=== PATIENT | female | born 1990 | race Caucasian/White ===

== ENCOUNTER → 2017-07-31 | Outpatient (CLI) | payer BC ==
[2017-07-31 17:59] LABS: BASOPHILS # (AUTO) 0.1 10^3/uL (0.0-0.1); BASOPHILS % (AUTO) 1 % (0-10); EOSINOPHILS # (AUTO) 0.1 10^3/uL (0.0-0.3); EOSINOPHILS % (AUTO) 1 % (0-10); HEMATOCRIT 41 % (35-52); HEMOGLOBIN 13.6 G/DL (11.5-16.0); LYMPHOCYTES # (AUTO) 2.1 X 10^3 (1.0-4.0); LYMPHOCYTES % (AUTO) 21 % (12-44); MEAN CORPUSCULAR HEMOGLOBIN 27 PG (25-34); MEAN CORPUSCULAR HGB CONC 33 G/DL (32-36); MEAN CORPUSCULAR VOLUME 82 FL (80-99); MEAN PLATELET VOLUME 9.5 FL (7.4-10.4); MONOCYTES # (AUTO) 0.6 X 10^3 (0.0-1.0); MONOCYTES % (AUTO) 6 % (0-12); NEUTROPHILS % (AUTO) 72 % (42-75); PLATELET COUNT 298 10^3/uL (130-400); RED BLOOD COUNT 4.97 10^6/uL (4.35-5.85); RED CELL DISTRIBUTION WIDTH 13.5 % (10.0-14.5); WHITE BLOOD COUNT 9.8 10^3/uL (4.3-11.0)
[2017-07-31 18:14] LABS: BUN/CREATININE RATIO 17; CALCIUM 9.8 MG/DL (8.5-10.1); CARBON DIOXIDE 23 MMOL/L (21-32); CHLORIDE 106 MMOL/L (98-107); CREATININE SERUM 0.69 MG/DL (0.60-1.30); GFR ESTIMATED > 60; GLUCOSE 89 MG/DL (70-105); POTASSIUM 3.9 MMOL/L (3.6-5.0); SODIUM 140 MMOL/L (135-145)
== END ==
LOC: LAB 17:29
PROVIDERS: ATTEND Nurse Practitioner Family
DX: J18.9 Pneumonia, unspecified organism (principal); R05 Cough; R06.00 Dyspnea, unspecified
CPT/HCPCS: 36415; 80048; 82330; 85025; 86141; 86738

== ENCOUNTER 2018-08-15 21:30 | Observation (INO) | payer BC, MEDICAID ==
[~2018-08-15] VITALS: Ht 175.3 cm; Wt 157.9 kg
--- NOTE | 2018-08-15 21:35 | NUR ---
GREER KNIGHT presented to unit via ambulation from ED, accompanied by , with c/o CONTRACTIONS. GREER KNIGHT weighed, gowned, voided, and to bed. EFHM and TOCO applied, VS taken. GREER KNIGHT oriented to bed controls, call light, TV, heat, and A/C controls.
[2018-08-15 22:00] VITALS: BP 134/83
[2018-08-15 23:02] LABS: BASOPHILS % (AUTO) 0 % (0-10); EOSINOPHILS # (AUTO) 0.1 10^3/uL (0.0-0.3); EOSINOPHILS % (AUTO) 1 % (0-10); HEMATOCRIT 36 % (35-52); HEMOGLOBIN 12.1 G/DL (11.5-16.0); LYMPHOCYTES # (AUTO) 1.9 X 10^3 (1.0-4.0); LYMPHOCYTES % (AUTO) 17 % (12-44); MEAN CORPUSCULAR HEMOGLOBIN 28 PG (25-34); MEAN CORPUSCULAR HGB CONC 33 G/DL (32-36); MEAN CORPUSCULAR VOLUME 85 FL (80-99); MEAN PLATELET VOLUME 10.1 FL (7.4-10.4); MONOCYTES # (AUTO) 0.7 X 10^3 (0.0-1.0); MONOCYTES % (AUTO) 6 % (0-12); NEUTROPHILS # (AUTO) 8.7 X 10^3 (1.8-7.8); NEUTROPHILS % (AUTO) 76 % (42-75); PLATELET COUNT 183 10^3/uL (130-400); RED CELL DISTRIBUTION WIDTH 14.3 % (10.0-14.5); WHITE BLOOD COUNT 11.3 10^3/uL (4.3-11.0)
[2018-08-15 23:15] LABS: BILIRUBIN,URINE NEGATIVE (NEGATIVE); CLARITY,URINE VERY CLOUDY; COLOR,URINE YELLOW; GLUCOSE, URINE (UA) NEGATIVE (NEGATIVE); KETONES,URINE 1+ (NEGATIVE); LEUKOCYTE ESTERASE ,URINE 1+ (NEGATIVE); NITRITE,URINE NEGATIVE (NEGATIVE); PH,URINE 6 (5-9); PROTEIN,URINE 2+ (NEGATIVE); UROBILINOGEN,URINE 1 MG/DL (NORMAL)
[2018-08-15 23:21] LABS: BACTERIA,URINE TRACE /HPF; RBC,URINE >100 /HPF; WBC,URINE 0-2 /HPF
[2018-08-15] MEDS ORDERED: BUTORPHANOL INJ 2 MG/ML (STADOL) VIAL ONE (23:45)
[2018-08-15] MEDS ORDERED: D5 LR IV SOLUTION 1,000 ML IV ONE (23:45)
[2018-08-15] MEDS ORDERED: BUTORPHANOL INJ 2 MG/ML (STADOL) VIAL IV ONE (23:45)
[2018-08-15] MEDS ORDERED: ONDANSETRON 4 MG/2 ML (SDV) Z0FRAN IVP ONE (23:45)
[2018-08-16] MEDS: D5 LR IV SOLUTION 1,000 ML IV SCH ×6 (00:15→20:15)
[2018-08-16] MEDS ORDERED: D5 LR IV SOLUTION 1,000 ML IV ONE (01:18)
[2018-08-16] MEDS ORDERED: ONDANSETRON 4 MG/2 ML (SDV) Z0FRAN ONE (02:09)
[2018-08-16] MEDS ORDERED: BUTORPHANOL INJ 2 MG/ML (STADOL) VIAL ONE ×2 (03:11→07:50)
[2018-08-16] MEDS: BUTORPHANOL INJ 2 MG/ML (STADOL) VIAL IV PRN ×8 (03:17→21:22)
--- NOTE | 2018-08-16 07:06 | NUR ---
Dr. Avina updated on patients status. New orders received.
[2018-08-16] MEDS ORDERED: cefTRIAXone 1,000 MG IV (ROCEPHIN) VIAL ONE (07:25)
[2018-08-16] MEDS ORDERED: WATER (STERILE) FOR INJECTION 0 ML ONE (07:28)
--- NOTE | 2018-08-16 07:30 | NUR ---
Dr. Horne here to see patient. Updated on Dr. Avina's status of assuming care for patient.
[2018-08-16] MEDS: cefTRIAXone FOR IV USE 1,000 MG in WATER (STERILE) FOR INJECTION 10 ML IV SCH (07:38)
--- NOTE | 2018-08-16 07:45 | History & Physical ---
History and Physical Date Seen by Provider: Aug 16, 2018 Time Seen by Provider: 07:41 This patient is a 28-year-old white female patient of Dr. Avina who was admitted last evening with symptoms and signs of a kidney stone. She has been maintained on IV fluids and intermittent pain medication through the night. Her pain has persisted does not appear that she has passed a stone as of yet. She does have a history of having a kidney stone about 6 years ago. She denies rupture membranes or bleeding. She does feel baby moving and denies contractions. She's had no other to date with this . Allergies are none Medications are vitamins Medical social and surgical histories are per her antepartum record per Dr. Avina HEENT exam is normal, patient does appear to be uncomfortable Neck is supple without lymphadenopathy or thyromegaly Abdomen is gravid soft nontender nondistended Extremities show no clubbing or cyanosis. There is some pretibial pitting edema that is normal. Pelvic Exam is deferred Lab work is as follows Laboratory Tests Test 08/15/18 22:55 08/15/18 23:07 Range/Units White Blood Count 11.3 H 4.3-11.0 10^3/uL Red Blood Count 4.27 L 4.35-5.85 10^6/uL Hemoglobin 12.1 11.5-16.0 G/DL Hematocrit 36 35-52 % Mean Corpuscular Volume 85 80-99 FL Mean Corpuscular Hemoglobin 28 25-34 PG Mean Corpuscular Hemoglobin Concent 33 32-36 G/DL Red Cell Distribution Width 14.3 10.0-14.5 % Platelet Count 183 130-400 10^3/uL Mean Platelet Volume 10.1 7.4-10.4 FL Neutrophils (%) (Auto) 76 H 42-75 % Lymphocytes (%) (Auto) 17 12-44 % Monocytes (%) (Auto) 6 0-12 % Eosinophils (%) (Auto) 1 0-10 % Basophils (%) (Auto) 0 0-10 % Neutrophils # (Auto) 8.7 H 1.8-7.8 X 10^3 Lymphocytes # (Auto) 1.9 1.0-4.0 X 10^3 Monocytes # (Auto) 0.7 0.0-1.0 X 10^3 Eosinophils # (Auto) 0.1 0.0-0.3 10^3/uL Basophils # (Auto) 0.0 0.0-0.1 10^3/uL Urine Color YELLOW Urine Clarity VERY CLOUDY H Urine pH 6 5-9 Urine Specific Catherine 1.020 1.016-1.022 Urine Protein 2+ H NEGATIVE Urine Glucose (UA) NEGATIVE NEGATIVE Urine Ketones 1+ H NEGATIVE Urine Nitrite NEGATIVE NEGATIVE Urine Bilirubin NEGATIVE NEGATIVE Urine Urobilinogen 1 NORMAL MG/DL Urine Leukocyte Esterase 1+ H NEGATIVE Urine RBC (Auto) 5+ H NEGATIVE Urine RBC >100 H /HPF Urine WBC 0-2 /HPF Urine Squamous Epithelial Cells 5-10 /HPF Urine Crystals NONE /LPF Urine Bacteria TRACE /HPF Urine Casts NONE /LPF Urine Mucus SMALL H /LPF Urine Culture Indicated NO This does appear consistent with nephrolithiasis monitor shows a normal heart rate pattern with a reactive pattern and some uterine irritability but no distinct contractions Vital Signs Date Time Temp Pulse Resp B/P (MAP) Pulse Ox O2 Delivery O2 Flow Rate FiO2 08/15/18 22:00 98.7 100 18 134/83 (100) Vital signs are stable. Patient is afebrile. Assessment and plan 35-6/7 weeks' gestation in a patient with nephrolithiasis and ureteral colic. Dr. Avina is aware of this patient and has assumed care. Ureteral lithiasis and ureteral colic Allergies and Home Medications Allergies Coded Allergies: No Known Drug Allergies (Unverified , 08/15/18) Patient Home Medication List Home Medication List Reviewed: LING Arita MD Aug 16, 2018 07:45
[2018-08-16 08:00] VITALS: BP 122/73
--- NOTE | 2018-08-16 08:11 | NUR ---
Ultrasound here for ordered scans.
--- NOTE | 2018-08-16 08:45 | NUR ---
Dr. Avina here to see patient. New orders received.
[2018-08-16] MEDS ORDERED: morphine INJ 10 MG/ML 1ML (SYR OR VIAL) IVP PRN (09:00)
--- NOTE | 2018-08-16 09:17 | History & Physical ---
History of Present Illness History of Present Illness Reason for visit/HPI This is a 28 yo female patient who presents with back pain since yesterday. Pain is similar to what she felt when diagnosed with kidney stones during a previous . She has also had associated nausea and vomitting, most recently this morning. Pain is increased with lloyds punch and seems to be relieved with pain medication (stadol). She is 35 and 6/7 weeks . She is not currently having contractions. She denies bleeding or rupture of membranes. She reports movement. Date of Admission 08/16/18 Date Seen by a Provider: Aug 16, 2018 Time Seen by a Provider: 08:45 I consulted on this patient on 08/16/18 09:12 Attending Physician Kishan Hazel DO Admitting Physician Pham,Local Physician Consult Attending note - at [address] Horne yesterday for suspected nephrolithiasis. Previous history of suspected nephrolithiasis in previousd . She has had a vaginal delivery and then emergency CS and would like TOLAC. Current pain is 6/10. Had hematuria on straigh cath. no fever and no leukocytosis Allergies and Home Medications Allergies Coded Allergies: No Known Drug Allergies (Unverified , 08/15/18) Patient Home Medication List Home Medication List Reviewed: Yes Past Axkusdd-Ltrjir-Wfxlqu Hx Past Med/Social Hx: Reviewed Nursing Past Med/Soc Hx Patient Social History Marrital Status: Recent Foreign Travel: No Contact w/other who traveled: No Recent Infectious Disease Expo: No Past Medical History Surgeries: Section Expected Date of Delivery: September 13, 2018 Hx : 3 Hx Para: 2 Family History Other Conditions/Hx (breast cancer, aunt and GM) Review of Systems Constitutional: no symptoms reported Gastrointestinal: nausea, vomiting Genitourinary: no symptoms reported, hematuria : Yes Expected Date of Delivery: September 13, 2018 LMP: Aug 17, 2018 Musculoskeletal: back pain (mostly on left) All Other Systems Reviewed Negative Unless Noted: Yes Physical Exam Vital Signs Vital Signs - First Documented 08/15/18 08/16/18 22:00 08:00 Temp 98.7 Pulse 100 Resp 18 B/P (MAP) 134/83 (100) Pulse Ox 95 O2 Delivery Room Air Capillary Refill : Height, Weight, BMI Height: 5'9.00" Weight: 348lbs. 2.0oz. [id number]; 51.4 BMI Method: General Appearance: No Apparent Distress Neck: Full Range of Motion, Normal Inspection Respiratory: No Accessory Muscle Use Cardiovascular: Regular Rate, Rhythm Gastrointestinal: Other (gravid abdomen) Back: CVA Tenderness (L), CVA Tenderness (R) Neurologic/Psychiatric: Alert, Oriented x3, Normal Mood/Affect Skin: Normal Color, Warm/Dry Assessment/Plan Assessment and Plan at 35 + 6/7 weeks * No signs of labor currently: no contractions, no distress * Ultrasound positive for heart tones and normal movement * Continue to monitor Back pain * suspect nephrolithiasis * UA positive for RBC and leukocyte esterase * No stone or hydronephrosis visualized on ultrasound * Rocephin * IVF * pain management with stadol, morphine ordered for breakthrough pain Nausea / Vomiting * Fluid replacement with IVF * promethazine for nausea Attending addendum - Agree with above. US for position and growth, BMP pending, Rocephin due to suspected nephrolithiasis. Strain urine, accurate i/o, hyperhydration and IV pain meds and antiemetics. Betamethasone as with possibility of delivery. No evidence of hydronephrosis on renal scan but she is requiring pain medication and antiemetics. Will continue treatment for suspected stone and convert to oral narcotics as she is able. In addition, patient desires TOLAC and form has been signed and is on clinic chart. Admission Diagnosis Admission Status: Observation ADITHYA PEREZ MED STUDENT Aug 16, 2018 09:17 KISHAN HAZEL DO Aug 17, 2018 05:30
[2018-08-16 09:31] LABS: BUN/CREATININE RATIO 13; CALCIUM 9.7 MG/DL (8.5-10.1); CARBON DIOXIDE 18 MMOL/L (21-32); CHLORIDE 106 MMOL/L (98-107); CREATININE SERUM 0.62 MG/DL (0.60-1.30); GFR ESTIMATED > 60; GLUCOSE 83 MG/DL (70-105); POTASSIUM 3.7 MMOL/L (3.6-5.0); SODIUM 137 MMOL/L (135-145)
--- NOTE | 2018-08-16 10:00 | NUR ---
Patient transferred to room 301 via ambulation. Patient oriented to room and call light.
[2018-08-16] MEDS: PROMETHAZINE INJ 25 MG/ML (PHENERGAN) AMP IVP PRN (10:15)
--- NOTE | 2018-08-16 10:28 | Diagnostic Imaging Report ---
PROCEDURE: US Renal Bilateral. TECHNIQUE: Multiple Real-time grayscale images were obtained over the kidneys in various projections bilaterally. INDICATION: Nephrolithiasis. FINDINGS: The right kidney measures 11.9 x 6.1 x 5.9 cm. The left kidney measures 14.4 x 7.7 x 7.5 cm. Both kidneys demonstrate normal renal cortical thickness and echogenicity. There is no hydronephrosis, calculus, or mass. The patient voided prior to the exam and therefore no images of the bladder were obtained. The IVC was also not seen. IMPRESSION: Unremarkable sonographic appearance of both kidneys. Dictated by: Dictated on workstation # [id number]
--- NOTE | 2018-08-16 10:38 | Diagnostic Imaging Report ---
INDICATION: Flank pain. TECHNIQUE: Multiple Real-time grayscale images were obtained over the gravid uterus. COMPARISON: 04/23/2018. FINDINGS: There is a single living intrauterine in a cephalic presentation. The placenta is anterior with no previa. The biometry correlates with a gestational age of 37 weeks 2 days. The heartrate is 127 BPM. The amniotic fluid index is 8.24. The biophysical profile score is 6 out of 8 due to a lack of visualized breathing movements. Biometrical measurements are as follows: Biparietal 9.51 cm, age 38 weeks 6 days. Head circumference 33.81 cm, age 38 weeks 6 days. Abdominal circumference 32.76 cm, age 36 weeks 5 days. Femur length 6.66 cm, age 34 weeks 2 days. Sonographic estimate age: 37 weeks 2 days. Sonographic estimated date of delivery: 09/04/2018. Estimated Weight: 2963 gm (+/- 433 gm). LMP percentile: 66%. heart rate: 127 beats per minute. number: 1 of 1. IMPRESSION: Single living intrauterine with a sonographically estimated gestational age of 37 weeks 2 days and an estimated date of confinement of September 04, 2018. The biophysical profile score is 6 out of 8 due to a lack of visualized breathing. Dictated by: Dictated on workstation # [id number]
--- OUTSIDE RECORDS SUMMARY | 2018-08-16 12:36 | XMS REPORT | Continuity of Care Document ---
Author Organization Unknown Address Unknown Allergies There is no data. Medications There is no data. Problems There is no data. Procedures There is no data. Results There is no data. Encounters ACCT No. Visit Date/Time Discharge Status Pt. Type Provider Facility Loc./Unit Complaint [id number] 08/04/2018 09:00:00 08/04/2018 23:59:59 CLS Outpatient [facility]
--- OUTSIDE RECORDS SUMMARY | 2018-08-16 12:36 | XMS REPORT ---
Author Author RAH REDMAN Organization [facility] [address] [place] [address] Care Team Providers Care Flag Car Driver Name Role Phone RAH REDMAN Unavailable PROBLEMS Unknown Problems ALLERGIES No Known Allergies ENCOUNTERS Encounter Location Date Diagnosis [facility] [address] [place] [address] Jul, BMI 50.0-59.9, adult Z68.43 and Encounter for IUD removal Z30.432 IMMUNIZATIONS No Known Immunizations SOCIAL HISTORY Never Assessed REASON FOR VISIT IUD removal. [facility] PLAN OF CARE Activity Details Follow Up prn Reason: Future/Pending Procedure IUD REMOVAL VITAL SIGNS Height 69 in 2017-08-03 Weight 341.6 lbs 2017-08-03 Temperature 98.3 degrees Fahrenheit 2017-08-03 Heart Rate 114 bpm 2017-08-03 Respiratory Rate 16 2017-08-03 BMI 50.44 kg/m2 2017-08-03 Blood pressure systolic 108 mmHg 2017-08-03 Blood pressure diastolic 82 mmHg 2017-08-03 MEDICATIONS Medication Instructions Dosage Frequency Start Date End Date Duration Status Amoxicillin 500 MG Orally every 8 hrs 1 capsule 8h Active Albuterol Sulfate HFA 108 (90 Base) MCG/ACT Inhalation every 6 hrs 2 puffs as needed 6h Active Symbicort 80-4.5 MCG/ACT Inhalation Twice a day 2 puffs 12h Active Flagyl 500 MG Orally every 8 hrs 1 tablet 8h Active RESULTS No Results PROCEDURES Procedure Date Ordered Result Body Site REMOVE INTRAUTERINE DEVICE August 03, 2017 INSTRUCTIONS MEDICATIONS ADMINISTERED No Known Medications
[2018-08-16] MEDS: BETAMETHASONE ACE/NA PHOS 6 MG/ML (CELESTONE SOLUSPAN) IM SCH (14:47)
--- NOTE | 2018-08-16 14:47 | NUR ---
Betamethasone 12mg IM given in patient's left deltoid.
[2018-08-16 15:00] VITALS: BP 121/72
[2018-08-16] MEDS ORDERED: ACETAMINOPHEN 500 MG TAB (TYLENOL) PO PRN (17:00)
[2018-08-17] MEDS: D5 LR IV SOLUTION 1,000 ML IV SCH ×5 (00:11→17:53)
[2018-08-17] MEDS: PROMETHAZINE INJ 25 MG/ML (PHENERGAN) AMP IVP PRN (07:02)
[2018-08-17 08:00] VITALS: BP 119/58
--- NOTE | 2018-08-17 08:00 | NUR ---
A.M. ASSESSMENT COMPLETED. VSS. DENIES PAIN AT THIS TIME. WILL HAVE PT EAT BEFORE NST.
[2018-08-17] MEDS: cefTRIAXone FOR IV USE 1,000 MG in WATER (STERILE) FOR INJECTION 10 ML IV SCH (08:17)
--- NOTE | 2018-08-17 10:00 | NUR ---
TOOK 100% OF REGULAR DIET. C/O LEFT FLANK PAIN. CONTINUING TO STRAIN URINE.
--- NOTE | 2018-08-17 10:13 | NUR ---
OXYIR 10MG P.O. FOR C/O FLANK PAIN RATED 6/10. WARM BLANKET TO LOW BACK. WILL WAIT TO DO NST UNTIL MORE COMFORTABLE.
--- NOTE | 2018-08-17 11:00 | NUR ---
STATES PAIN GONE AT THIS TIME. CONTINUING TO STRAIN ALL URINE.
--- NOTE | 2018-08-17 11:54 | NUR ---
EFM ON FOR NST. PT ON RIGHT SIDE.
[2018-08-17 11:55] VITALS: BP 131/74
[2018-08-17] MEDS ORDERED: ACET-77 PO (12:25)
[2018-08-17] MEDS ORDERED: OXC5T PO (12:25)
[2018-08-17] MEDS ORDERED: DOCU-143 PO (12:25)
--- NOTE | 2018-08-17 12:27 | Discharge Inst-Women's Service ---
Discharge Inst-Women's Serv Depart Medication/Instructions New, Converted or Re-Newed RX: RX on Chart Final Diagnosis nephrolithiasis 36 week previous section Consults/Follow Up Additional Follow Up: Yes (as previously) Activity Activity: Activity as Tolerated Driving Instructions: You May Drive NO SMOKING: NO SMOKING Nothing Inside Vagina: No Douching, No Sunray, No Tampons Diet Discharge Diet: No Restrictions Symptoms to Report to : Pain Increased, Urine Color Change, Fever Over 101 Degrees F, Vaginal Discharge Foul, Nausea/Vomiting Skin/Wound Care Bathing Instructions: KISHAN Mancia DO Aug 17, 2018 12:27
[2018-08-17 12:32] VITALS: BP 131/74
[2018-08-17] MEDS: BETAMETHASONE ACE/NA PHOS 6 MG/ML (CELESTONE SOLUSPAN) IM SCH (14:17)
--- NOTE | 2018-08-17 14:17 | NUR ---
BETAMETHASONE 12MG IM IN LEFT VG SITE. SITE CLEAR.
--- NOTE | 2018-08-17 14:30 | NUR ---
DR. HAZEL IN TO SEE PT.
--- NOTE | 2018-08-17 15:16 | NUR ---
DECREASED IV FLUIDS TO 125 MLS/HR/PUMP. SITE CLEAR.
[2018-08-17 16:00] VITALS: BP 123/74
--- NOTE | 2018-08-17 16:14 | NUR ---
VISITORS IN ROOM. NO FURTHER C/O LEFT FLANK PAIN.
--- NOTE | 2018-08-17 18:20 | NUR ---
PT AND SPOUSE MOVED TO [facility] R/T [facility].
--- NOTE | 2018-08-17 18:45 | NUR ---
PT RETURNED TO ROOM R/T ALL CLEAR.
[2018-08-17 20:34] VITALS: BP 110/58
--- NOTE | 2018-08-17 22:58 | Progress Note (SOAP) ---
Subjective Date Seen by a Provider: Aug 17, 2018 Time Seen by a Provider: 10:30 Subjective/Events-last exam Laboratory Tests Test 08/15/18 22:55 08/15/18 23:07 Range/Units White Blood Count 11.3 H 4.3-11.0 10^3/uL Red Blood Count 4.27 L 4.35-5.85 10^6/uL Hemoglobin 12.1 11.5-16.0 G/DL Hematocrit 36 35-52 % Mean Corpuscular Volume 85 80-99 FL Mean Corpuscular Hemoglobin 28 25-34 PG Mean Corpuscular Hemoglobin Concent 33 32-36 G/DL Red Cell Distribution Width 14.3 10.0-14.5 % Platelet Count 183 130-400 10^3/uL Mean Platelet Volume 10.1 7.4-10.4 FL Neutrophils (%) (Auto) 76 H 42-75 % Lymphocytes (%) (Auto) 17 12-44 % Monocytes (%) (Auto) 6 0-12 % Eosinophils (%) (Auto) 1 0-10 % Basophils (%) (Auto) 0 0-10 % Neutrophils # (Auto) 8.7 H 1.8-7.8 X 10^3 Lymphocytes # (Auto) 1.9 1.0-4.0 X 10^3 Monocytes # (Auto) 0.7 0.0-1.0 X 10^3 Eosinophils # (Auto) 0.1 0.0-0.3 10^3/uL Basophils # (Auto) 0.0 0.0-0.1 10^3/uL Sodium Level 137 135-145 MMOL/L Potassium Level 3.7 3.6-5.0 MMOL/L Chloride Level 106 98-107 MMOL/L Carbon Dioxide Level 18 L 21-32 MMOL/L Anion Gap 13 5-14 MMOL/L Blood Urea Nitrogen 8 7-18 MG/DL Creatinine 0.62 0.60-1.30 MG/DL Estimat Glomerular Filtration Rate > 60 BUN/Creatinine Ratio 13 Glucose Level 83 70-105 MG/DL Calcium Level 9.7 8.5-10.1 MG/DL Urine Color YELLOW Urine Clarity VERY CLOUDY H Urine pH 6 5-9 Urine Specific [place] 1.020 1.016-1.022 Urine Protein 2+ H NEGATIVE Urine Glucose (UA) NEGATIVE NEGATIVE Urine Ketones 1+ H NEGATIVE Urine Nitrite NEGATIVE NEGATIVE Urine Bilirubin NEGATIVE NEGATIVE Urine Urobilinogen 1 NORMAL MG/DL Urine Leukocyte Esterase 1+ H NEGATIVE Urine RBC (Auto) 5+ H NEGATIVE Urine RBC >100 H /HPF Urine WBC 0-2 /HPF Urine Squamous Epithelial Cells 5-10 /HPF Urine Crystals NONE /LPF Urine Bacteria TRACE /HPF Urine Casts NONE /LPF Urine Mucus SMALL H /LPF Urine Culture Indicated NO Objective Exam Vital Signs Date Time Temp Pulse Resp B/P (MAP) Pulse Ox O2 Delivery O2 Flow Rate FiO2 08/17/18 20:34 98.2 95 22 110/58 (75) 97 Room Air 08/17/18 16:00 98.5 81 20 123/74 (90) 97 Room Air 08/17/18 12:32 91 20 131/74 08/17/18 11:55 98.7 91 20 131/74 (93) 98 Room Air 08/17/18 08:00 98.3 82 20 119/58 (78) 98 Room Air I & O 08/17/18 07:00 Intake Total 4710 ml Output Total 1050 ml Balance 3660 ml Capillary Refill : General Appearance: Mild Distress Assessment/Plan Assessment/Plan Assess & Plan/Chief Complaint 1. 36 week gestation 2. nephrolithiasis Clinical Quality Measures Admission Status Admission Dx at 35 + 6/7 weeks * No signs of labor currently: no contractions, no distress * Ultrasound positive for heart tones and normal movement * Continue to monitor Back pain * suspect nephrolithiasis * UA positive for RBC and leukocyte esterase * No stone or hydronephrosis visualized on ultrasound * Rocephin * IVF * pain management with stadol, morphine ordered for breakthrough pain Nausea / Vomiting * Fluid replacement with IVF * promethazine for nausea Attending addendum - Agree with above. US for position and growth, BMP pending, Rocephin due to suspected nephrolithiasis. Strain urine, accurate i/o, hyperhydration and IV pain meds and antiemetics. Betamethasone as with possibility of delivery. No evidence of hydronephrosis on renal scan but she is requiring pain medication and antiemetics. Will continue treatment for suspected stone and convert to oral narcotics as she is able. In addition, patient desires TOLAC and form has been signed and is on clinic chart. KISHAN HAZEL DO Aug 17, 2018 22:58
[2018-08-18] MEDS: D5 LR IV SOLUTION 1,000 ML IV SCH (01:51)
[2018-08-18] MEDS: PROMETHAZINE INJ 25 MG/ML (PHENERGAN) AMP IVP PRN (05:06)
[2018-08-18 06:00] VITALS: BP 132/75
[2018-08-18 08:00] VITALS: BP 122/74
[2018-08-18] MEDS: cefTRIAXone FOR IV USE 1,000 MG in WATER (STERILE) FOR INJECTION 10 ML IV SCH (08:00)
--- NOTE | 2018-08-18 08:00 | NUR ---
IV INFILTRATED. D/C'ED WITH TIP INTACT.
--- NOTE | 2018-08-18 08:47 | NUR ---
DR. HAZEL CALLED. WILL MAKE ROUNDS SOON.
--- NOTE | 2018-08-18 09:20 | NUR ---
[id number] FHR TRACING. HAVING TO HOLD U/S TRANSDUCER TO KEEP TRACING. BASELINE 105. +FM AND + ACCELS. MOD VARIABILITY. DR. HAZEL REVIEWED STRIP. REACTIVE FETUS.
--- NOTE | 2018-08-18 09:36 | Progress Note (SOAP) ---
Objective Exam Vital Signs Date Time Temp Pulse Resp B/P (MAP) Pulse Ox O2 Delivery O2 Flow Rate FiO2 08/18/18 06:50 Room Air 08/18/18 06:00 98.8 90 18 132/75 (94) Room Air 08/17/18 20:34 98.2 95 22 110/58 (75) 97 Room Air 08/17/18 16:00 98.5 81 20 123/74 (90) 97 Room Air 08/17/18 12:32 91 20 131/74 08/17/18 11:55 98.7 91 20 131/74 (93) 98 Room Air I & O 08/18/18 07:00 Intake Total 3890 ml Output Total 1510 ml Balance 2380 ml Capillary Refill : Assessment/Plan Assessment/Plan Assess & Plan/Chief Complaint 1. 36 week gestation 2. nephrolithiasis Clinical Quality Measures Admission Status Admission Dx at 35 + 6/7 weeks * No signs of labor currently: no contractions, no distress * Ultrasound positive for heart tones and normal movement * Continue to monitor Back pain * suspect nephrolithiasis * UA positive for RBC and leukocyte esterase * No stone or hydronephrosis visualized on ultrasound * Rocephin * IVF * pain management with stadol, morphine ordered for breakthrough pain Nausea / Vomiting * Fluid replacement with IVF * promethazine for nausea Attending addendum - Agree with above. US for position and growth, BMP pending, Rocephin due to suspected nephrolithiasis. Strain urine, accurate i/o, hyperhydration and IV pain meds and antiemetics. Betamethasone as with possibility of delivery. No evidence of hydronephrosis on renal scan but she is requiring pain medication and antiemetics. Will continue treatment for suspected stone and convert to oral narcotics as she is able. In addition, patient desires TOLAC and form has been signed and is on clinic chart. KISHAN HAZEL DO August 18, 2018 09:36
--- NOTE | 2018-08-18 11:00 | NUR ---
SUPPLIES GIVEN TO STRAIN ALL URINE AT HOME.
--- NOTE | 2018-08-18 11:05 | NUR ---
DISCHARGE INSTRUCTIONS REVIEWED WITH COPY TO PT. RXS GIVEN. STATES UNDERSTANDING OF ALL INSTRUCTIONS AND NEED TO F/U SCHEDULED AND NEEDED.
[2018-08-18 11:10] VITALS: BP 122/74
--- NOTE | 2018-08-18 11:10 | NUR ---
DISMISSED AMB FROM [facility] IN STABLE CONDITION TO FAMILY CAR ACC BY CASSIUS WIGGINS.
--- OUTSIDE RECORDS SUMMARY | 2018-08-20 15:55 | XMS REPORT | Continuity of Care Document ---
Author Organization Unknown Address Unknown Allergies There is no data. Medications There is no data. Problems There is no data. Procedures There is no data. Results There is no data. Encounters ACCT No. Visit Date/Time Discharge Status Pt. Type Provider Facility Loc./Unit Complaint [id number] 08/04/2018 09:00:00 08/04/2018 23:59:59 CLS Outpatient [facility]
== END 2018-08-18 09:36 | disposition home or self-care (01) ==
LOC: WSo 21:30 → LDRP 21:33 → UNDOADMOB 08-16 09:16 → WSo 08-16 09:16 → LDRP 08-16 09:17 → UNDODISOB 08-18 11:10
PROVIDERS: ADMIT Obstetrics & Gynecology; ATTEND Obstetrics & Gynecology
DX: O99.89 Other specified diseases and conditions complicating pregnancy, childbirth and the puerperium (principal); N20.1 Calculus of ureter; O21.2 Late vomiting of pregnancy; Z3A.36 36 weeks gestation of pregnancy
CPT/HCPCS: 36415; 76770; 76805; 76819; 80048; 81000; 85025; 96361; 96372; 96374; 96375; 96376; 99211; G0378

== ENCOUNTER 2018-08-20 13:11 | Inpatient (IN) | payer BC, MEDICAID ==
[~2018-08-20] VITALS: Ht 175.3 cm; Wt 167.4 kg
[2018-08-20] VITALS (9 sets, daily range): BP systolic 104–152; BP diastolic 25–89
[~2018-08-20 13:11] MED LIST: ACET-77 PO; DOCU-143 PO; OXC5T PO
--- NOTE | 2018-08-20 13:20 | NUR ---
GREER KNIGHT presented to unit via ambulation from ED, accompanied by family, with c/o BACK PAIN;KIDNEY STONES. GREER KNIGHT weighed, gowned, voided, and to bed. EFHM and TOCO applied, VS taken. GREER KNIGHT oriented to bed controls, call light, TV, heat, and A/C controls.
[2018-08-20] MEDS ORDERED: NS 1000 ML IV BAG IV SCH (14:15)
[2018-08-20 14:22] LABS: BILIRUBIN,URINE NEGATIVE (NEGATIVE); CLARITY,URINE CLEAR; COLOR,URINE YELLOW; GLUCOSE, URINE (UA) NEGATIVE (NEGATIVE); KETONES,URINE NEGATIVE (NEGATIVE); LEUKOCYTE ESTERASE ,URINE 1+ (NEGATIVE); NITRITE,URINE NEGATIVE (NEGATIVE); PH,URINE 7 (5-9); PROTEIN,URINE NEGATIVE (NEGATIVE); UROBILINOGEN,URINE NORMAL (NORMAL)
[2018-08-20] MEDS ORDERED: NS IV 1000 ML 1,000 ML IV ONE (14:30)
[2018-08-20 14:33] LABS: BACTERIA,URINE TRACE /HPF; WBC,URINE RARE /HPF
[2018-08-20 14:41] LABS: BASOPHILS % (AUTO) 0 % (0-10); EOSINOPHILS # (AUTO) 0.3 10^3/uL (0.0-0.3); EOSINOPHILS % (AUTO) 4 % (0-10); HEMATOCRIT 34 % (35-52); HEMOGLOBIN 11.5 G/DL (11.5-16.0); LYMPHOCYTES # (AUTO) 0.9 X 10^3 (1.0-4.0); LYMPHOCYTES % (AUTO) 10 % (12-44); MEAN CORPUSCULAR HEMOGLOBIN 29 PG (25-34); MEAN CORPUSCULAR HGB CONC 34 G/DL (32-36); MEAN CORPUSCULAR VOLUME 85 FL (80-99); MONOCYTES # (AUTO) 0.8 X 10^3 (0.0-1.0); MONOCYTES % (AUTO) 9 % (0-12); NEUTROPHILS % (AUTO) 77 % (42-75); PLATELET COUNT 180 10^3/uL (130-400); RED CELL DISTRIBUTION WIDTH 14.2 % (10.0-14.5)
[2018-08-20 15:00] LABS: ALANINE AMINOTRANSFERASE 11 U/L (0-55); ALBUMIN 2.9 GM/DL (3.2-4.5); ALKALINE PHOSPHATASE 100 U/L (40-136); BILIRUBIN,TOTAL 0.5 MG/DL (0.1-1.0); BUN/CREATININE RATIO 8; CARBON DIOXIDE 21 MMOL/L (21-32); CHLORIDE 105 MMOL/L (98-107); CREATININE SERUM 0.85 MG/DL (0.60-1.30); GFR ESTIMATED > 60; GLUCOSE 85 MG/DL (70-105); POTASSIUM 3.5 MMOL/L (3.6-5.0); SODIUM 138 MMOL/L (135-145); TOTAL PROTEIN 5.7 GM/DL (6.4-8.2); URIC ACID 4.6 MG/DL (2.6-7.2)
[2018-08-20] MEDS ORDERED: morphine INJ 10 MG/ML 1ML (SYR OR VIAL) ONE (15:22)
--- NOTE | 2018-08-20 16:15 | NUR ---
sve by this RN. 2.5/3cm 50% bloody show noted with exam.
--- NOTE | 2018-08-20 16:30 | NUR ---
dr bal notified of patient dilation. no new orders at this time.
--- NOTE | 2018-08-20 16:40 | NUR ---
dr herrera notified of patient status and cervical change. new orders received
[2018-08-20] MEDS ORDERED: LACTATED RINGERS 1,000 ML IV PRN ×2 (16:58→17:41)
[2018-08-20] MEDS ORDERED: CATHETER FLUSH 10 ML SYR IV PRN (17:00)
[2018-08-20] MEDS ORDERED: FAMOTIDINE 20MG/2ML IV (PEPCID) IV ONE ×2 (17:00→17:45)
[2018-08-20] MEDS ORDERED: ceFAZolin 2 GM IV Premixed 50 ML IV ONE ×2 (17:00→17:45)
[2018-08-20] MEDS ORDERED: METOCLOPRAMIDE INJ 10 MG/2 ML (REGLAN) IV ONE ×2 (17:00→17:45)
[2018-08-20] MEDS ORDERED: CITRIC ACID/SOB CIT (BICITRA) 30 ML UDC PO ONE ×2 (17:00→17:45)
--- NOTE | 2018-08-20 17:10 | NUR ---
dr herrera to floor.
--- NOTE | 2018-08-20 17:15 | NUR ---
reviewed plan for delivery via section with patient , verbalized understanding
--- NOTE | 2018-08-20 17:20 | NUR ---
anesthesia at bedside.
[2018-08-20] MEDS ORDERED: OXYTOCIN/NORMAL SALINE 500 ML IV ONE ×3 (17:28→18:50)
[2018-08-20] MEDS ORDERED: fentaNYL INJECTION 100 MCG/2 ML AMP ONE (17:28)
--- NOTE | 2018-08-20 17:29 | History & Physical-OB ---
OB - Chief Complaint & HPI Date/Time Date of Admission: Date of Admission: 08/20/18 Date seen by a Provider: August 20, 2018 Time Seen by a Provider: 17:17 Chief Complaint/History OB-Reason for Admission/Chief: Onset of Labor Hx : 3 Hx Para: 2 Expected Date of Delivery: September 13, 2018 Gestational Age in Weeks: 36 Gestational Age in Days: 4 Indication for : desires repeat Admission Nurse Assessment Rev: Yes Other Christy is a 28 year old at 36 4/7 weeks. EDC 09/13/18. She presented to women's services with worsening pain more like contractions. Christy was admitted 08/15-08/18 with hematuria, back pain and suspected nephrolithiasis. She has a history of nephrolithiasis with a previous . She was seen in the office yesterday with increase in pain and lower extremity edema. In addition she had a low grade temperature. she had an extensive workup and UA was negative (no further hematuria), Cervix was 2 cm/50% effaced. NST was reactive and no contractions were seen. She was sent home with close follow up (she was planning to be seen 08/23/18 for repeat NST), flexeril and 5 days of lasix for LE edema (due to IVF fluids from the nephrolithiasis). BP normal through but elevated this past visit (yesterday) and BP 130/ 83. While she was hospitalized 08/15-08/18 she was given Betamethasone x 2 doses. She had planned TOLAC and she has signed consent. However, she states she is in so much pain and is so tired, she would like to proceed with repeat CS. She is carlos every 4-5 minutes, with irritability and bloody show. She has not passed a stone but had passed more mucusy discharge in the urine. The flank pain is better but contractions are worse. A+,- HIV - Hep B and C negative RPR neg Abnormal 1 hour, normal 3 hour GBS - Allergies and Home Medications Allergies Coded Allergies: No Known Drug Allergies (Unverified , 08/15/18) Home Medications Acetaminophen 500 Mg Tablet, 1,000 MG PO Q8H PRN for PAIN-MILD Prescribed by: KISHAN HAZEL on 08/17/18 1225 Docusate Sodium 100 Mg Capsule, 100 MG PO BID Prescribed by: KISHAN HAZEL on 08/17/18 1225 Oxycodone Hcl 5 Mg Tab, 5 MG PO Q4H PRN for PAIN-SEVERE Prescribed by: KISHAN HAZEL on 08/17/18 1225 Patient Home Medication List Home Medication List Reviewed: Yes OB - History Hx of Present Care: Yes Ultrasounds: Normal mid trimester US Obstetrical Complications: None Medical Complications: None, Other (carpal tunnel ) Information Induced Hypertension: No Maternal Gestational Diabetes: No Hemorrhage: No Obstetrical History Hx : 3 Hx Para: 2 Hx Termination: No Hx Total # of Abortions (Spona: 0 Hx Multiple Gestation: No Hx Ectopic : No Hx Stillbirth: No Hx Complication: No Hx Induced Hypertens: No Hx Maternal Gestational Diabet: No Hx Hemorrhage: No Delivery History Hx Dystocia: No Hx Forceps Assisted Delivery: No Hx Vacuum Extraction Assisted: No Hx Placenta Abnormality: No Hx Distress: Yes Hx Large For Gestational Age I: Yes Hx Small for Gestational Age I: No Hx Section: Yes Hx Vaginal Delivery Post C-Sec: No Hx Blood Disorders: No Patient Past Medical History NC Social History/Family History HIV/AIDS: No Recent Infectious Disease Expo: No Sexually Transmitted Disease: No Alcohol Use: Denies Use Recreational Drug Use: No Smoking Cessation: Never smoker Significant Family Hx None Immunizations Hepatitis A: No Hepatitis B: No Tetanus Booster (TDap): Less than 5yrs (06/2018) Rubella: immune RPR/VDRL: Negative GBS Status: Negative OB - Admission Exam Physical Exam Vitals: Vital Signs 08/20/18 14:05 Temp 97.0 Pulse 99 Resp 20 B/P (MAP) 130/78 (95) HEENT: NCAT Heart: Rhythm Normal Lungs: Clear Abdomen: Gravid Extremities: Edema (2+ non pitting) Reflexes: Normal Cervical Dilatation: 3cm Effacement: 50% Station: -2 Membranes: Intact Heart Rate: 140's Accelerations: Accelerations Present (rare) Decelerations: No Decelerations Short Term Variability: Present Shelter Variability: Minimal (3-5) Contractions on Admission: < 5 Minutes Apart Labs Laboratory Tests Test 08/20/18 13:40 08/20/18 14:20 Range/Units Urine Color YELLOW Urine Clarity CLEAR Urine pH 7 5-9 Urine Specific [place] 1.005 L 1.016-1.022 Urine Protein NEGATIVE NEGATIVE Urine Glucose (UA) NEGATIVE NEGATIVE Urine Ketones NEGATIVE NEGATIVE Urine Nitrite NEGATIVE NEGATIVE Urine Bilirubin NEGATIVE NEGATIVE Urine Urobilinogen NORMAL NORMAL MG/DL Urine Leukocyte Esterase 1+ H NEGATIVE Urine RBC (Auto) NEGATIVE NEGATIVE Urine RBC NONE /HPF Urine WBC RARE /HPF Urine Squamous Epithelial Cells 5-10 /HPF Urine Crystals NONE /LPF Urine Bacteria TRACE /HPF Urine Casts NONE /LPF Urine Mucus NEGATIVE /LPF Urine Culture Indicated CULTURE PENDING White Blood Count 9.0 4.3-11.0 10^3/uL Red Blood Count 4.02 L 4.35-5.85 10^6/uL Hemoglobin 11.5 11.5-16.0 G/DL Hematocrit 34 L 35-52 % Mean Corpuscular Volume 85 80-99 FL Mean Corpuscular Hemoglobin 29 25-34 PG Mean Corpuscular Hemoglobin Concent 34 32-36 G/DL Red Cell Distribution Width 14.2 10.0-14.5 % Platelet Count 180 130-400 10^3/uL Mean Platelet Volume 10.0 7.4-10.4 FL Neutrophils (%) (Auto) 77 H 42-75 % Lymphocytes (%) (Auto) 10 L 12-44 % Monocytes (%) (Auto) 9 0-12 % Eosinophils (%) (Auto) 4 0-10 % Basophils (%) (Auto) 0 0-10 % Neutrophils # (Auto) 7.0 1.8-7.8 X 10^3 Lymphocytes # (Auto) 0.9 L 1.0-4.0 X 10^3 Monocytes # (Auto) 0.8 0.0-1.0 X 10^3 Eosinophils # (Auto) 0.3 0.0-0.3 10^3/uL Basophils # (Auto) 0.0 0.0-0.1 10^3/uL Sodium Level 138 135-145 MMOL/L Potassium Level 3.5 L 3.6-5.0 MMOL/L Chloride Level 105 98-107 MMOL/L Carbon Dioxide Level 21 21-32 MMOL/L Anion Gap 12 5-14 MMOL/L Blood Urea Nitrogen 7 7-18 MG/DL Creatinine 0.85 0.60-1.30 MG/DL Estimat Glomerular Filtration Rate > 60 BUN/Creatinine Ratio 8 Glucose Level 85 70-105 MG/DL Uric Acid 4.6 2.6-7.2 MG/DL Calcium Level 9.0 8.5-10.1 MG/DL Corrected Calcium 9.9 8.5-10.1 MG/DL Total Bilirubin 0.5 0.1-1.0 MG/DL Aspartate Amino Transf (AST/SGOT) 13 5-34 U/L Alanine Aminotransferase (ALT/SGPT) 11 0-55 U/L Alkaline Phosphatase 100 40-136 U/L Total Protein 5.7 L 6.4-8.2 GM/DL Albumin 2.9 L 3.2-4.5 GM/DL OB - Assessment/Plan/Diagnosis Assessment Assessment: active labor, section, labor Admission Dx 1. labor at 36 4/7 weeks 2. History of previous section 3. Recent Nephrolithiasis 4. History of > 3900 gram fetus Admission Status: Inpatient Order (span 2 midnights) Reason for Inpatient Admission: Repeat section Plan Plan: Section Other Plan Plan repeat section Risks of surgery include bleeding, infection, injury to bowel, bladder and ureter. There is risk of DVT, anesthesia complication. Will proceed with spinal anesthesia. Will use prophylactic antibiotics and SCDs. KISHAN HAZEL DO August 20, 2018 17:29
[2018-08-20] MEDS ORDERED: ONDANSETRON 4 MG/2 ML (SDV) Z0FRAN ONE (17:33)
--- NOTE | 2018-08-20 17:39 | NUR ---
efm removed. ambulated to or with OR staff.
[2018-08-20] MEDS ORDERED: KETOROLAC 30 MG/ML VIAL ONE (17:40)
--- OUTSIDE RECORDS SUMMARY | 2018-08-20 17:42 | XMS REPORT | Continuity of Care Document ---
Author Organization Unknown Address Unknown Allergies There is no data. Medications There is no data. Problems There is no data. Procedures There is no data. Results There is no data. Encounters ACCT No. Visit Date/Time Discharge Status Pt. Type Provider Facility Loc./Unit Complaint [id number] 08/04/2018 09:00:00 08/04/2018 23:59:59 CLS Outpatient [facility]
[2018-08-20] MEDS ORDERED: BUPIVACAINE 0.5% 30 ML (SENSORCAINE) VIAL ONE (18:33)
[2018-08-20] MEDS: KETOROLAC 30 MG/ML VIAL IV SCH (18:50)
[2018-08-20] MEDS ORDERED: OXYTOCIN/NORMAL SALINE 500 ML IV SCH (19:06)
[2018-08-20] MEDS ORDERED: TETANUS,DIPTH,PERTUSS P/F (BOOSTRIX) 0.5 ML VIAL IM SCH (19:15)
[2018-08-20] MEDS ORDERED: morphine INJ 4 MG/ML 1 ML (VIAL/SYRINGE) IV PRN (19:15)
[2018-08-20] MEDS ORDERED: MEASLES,MUMPS,RUBELLA 1 EA INJ SC SCH (19:15)
[2018-08-20] MEDS ORDERED: FUROSEMIDE 40 MG/4 ML INJ (LASIX) IVP NR (19:15)
--- NOTE | 2018-08-20 19:18 | Cesarean Section Operative ---
Procedure Procedure Note Pre-operative Diagnosis: Sheree De La O is a 28 /Para 3 / 2, Gestational Age 36 4/7 weeks with labor, previous section, nephrolithiasis. Post-operative Diagnosis: same Procedure: Repeat low transverse section Physician: KISHAN HAZEL Estimated blood loss: 500 mL Disposition: stable Findings: Viable female , Apgars 8/9, weight 7#13 ounces, intact placenta, 3vc, normal appearing uterus, tubes, and ovaries. Indications:Sheree De La O is a 28 /Para 3 / 2,Gestational Age 36 4/7 weeks with labor, previous section, nephrolithiasis for repeat section Procedure Details: The patient was seen in pre-op and the procedure was discussed with the patient in full, including the risks, benefits, and alternatives. All questions were answered. The patient was taken to the operating room and a time out was performed, verifying patient and procedure. After spinal anesthesia was placed by our anesthesia colleagues, the patient was placed in the dorsal supine with leftward tilt for uterine displacement.~ Her abdomen was then prepped and draped in the typical sterile fashion. A Pfannenstiel skin incision was made using a scalpel and carried down through the underlying fascia. The fascia was incised in the midline and tented up using Sunshine clamps. On both the inferior and superior fascia side the rectus muscle was dissected off bluntly and sharply using Tony scissors. The peritoneum was identified and entered bluntly in the midline. This was then stretched laterally using manual strength. After entering the abdominal cavity and confirming lack of intraperitoneal adhesions, an extra large Coy retractor was placed and the lower uterine segment was visualized. A bladder flap was created with the use of Metzenbaum scissors.~ A scalpel was utilized to make a low transverse uterine incision. Amniotomy was performed with an Allis clamp with return of copious clear fluid. The infant's head was grasped and brought to the level of the incision. Fundal pressure was applied and was delivered without difficulty with assistance of the Silastic suction. Mouth and nares were suctioned with bulb suction. After the umbilical cord was clamped and cut, the was handed off to the pediatric staff. A sample of cord blood was then obtained. The placenta was delivered via uterine massage. It was slightly adherent at the fundus, suggesting accreta. However, with manual exploration, it was completely removed. The uterine incision was closed using 0 Vicryl in a running locked fashion. A second imbricated layer was placed using 0 Vicryl in a running fashion as well. T\ The bilateral tubes and ovaries appeared normal. The gutters were cleared of all clots and debris. A final check of the uterine incision showed it to be hemostatic. The peritoneum was closed using 3-0 Vicryl in a running fashion. The rectus muscles were reapproximated in the midline with a loose stitch of 3-0 Vicryl. The fascia was closed with 0 Vicryl in a running fashion. The subcutaneous space was hemostatic, and irrigated. The subcutaneous space was closed with 3-0 Vicryl in several single interrupted stitches. The skin was then closed using 4-0 Monocryl in a running subcuticular fashion. The skin edges were reapproximated together and were hemostatic. A pressure dressing was applied. All sponge, lap and needle counts were correct at the end of the procedure per nursing. Vitals - Labs Vital Signs - I&O Vital Signs Date Time Temp Pulse Resp B/P (MAP) Pulse Ox O2 Delivery O2 Flow Rate FiO2 08/20/18 14:05 97.0 99 20 130/78 (95) 08/20/18 13:30 97.0 105 20 152/69 (96) Labs Laboratory Tests 08/20/18 13:40: Urine Color YELLOW, Urine Clarity CLEAR, Urine pH 7, Urine Specific [place] 1.005L, Urine Protein NEGATIVE, Urine Glucose (UA) NEGATIVE, Urine Ketones NEGATIVE, Urine Nitrite NEGATIVE, Urine Bilirubin NEGATIVE, Urine Urobilinogen NORMAL, Urine Leukocyte Esterase 1+H, Urine RBC (Auto) NEGATIVE, Urine RBC NONE , Urine WBC RARE, Urine Squamous Epithelial Cells 5-10, Urine Crystals NONE, Urine Bacteria TRACE, Urine Casts NONE, Urine Mucus NEGATIVE, Urine Culture Indicated CULTURE PENDING 08/20/18 14:20: White Blood Count 9.0, Red Blood Count 4.02L, Hemoglobin 11.5, Hematocrit 34L, Mean Corpuscular Volume 85, Mean Corpuscular Hemoglobin 29, Mean Corpuscular Hemoglobin Concent 34, Red Cell Distribution Width 14.2, Platelet Count 180, Mean Platelet Volume 10.0, Neutrophils (%) (Auto) 77H, Lymphocytes (%) (Auto) 10L, Monocytes (%) (Auto) 9, Eosinophils (%) (Auto) 4, Basophils (%) (Auto) 0, Neutrophils # (Auto) 7.0, Lymphocytes # (Auto) 0.9L, Monocytes # (Auto) 0.8, Eosinophils # (Auto) 0.3, Basophils # (Auto) 0.0, Sodium Level 138, Potassium Level 3.5L, Chloride Level 105, Carbon Dioxide Level 21, Anion Gap 12, Blood Urea Nitrogen 7, Creatinine 0.85, Estimat Glomerular Filtration Rate > 60, BUN/ Creatinine Ratio 8, Glucose Level 85, Uric Acid 4.6, Calcium Level 9.0, Corrected Calcium 9.9, Total Bilirubin 0.5, Aspartate Amino Transf (AST/SGOT) 13 , Alanine Aminotransferase (ALT/SGPT) 11, Alkaline Phosphatase 100, Total Protein 5.7L, Albumin 2.9L KISHAN HAZEL DO August 20, 2018 19:18
[2018-08-20] MEDS ORDERED: FERR325T18 PO (19:21)
[2018-08-20] MEDS ORDERED: IBUP-844 PO (19:21)
--- NOTE | 2018-08-20 19:22 | Discharge Inst-Women's Service ---
Discharge Inst-Women's Serv Depart Medication/Instructions New, Converted or Re-Newed RX: RX on Chart Final Diagnosis previous section labor at 36 4/7 weeks nephrolithiasis in Consults/Follow Up Additional Follow Up: Yes (7-10 days and 6 weeks with Fabrice) Activity Activity: Activity as Tolerated Driving Instructions: No Driving for 1 Week NO SMOKING: NO SMOKING Nothing Inside Vagina: No Douching, No [place], No Tampons Diet Discharge Diet: No Restrictions Symptoms to Report to : Swelling Increased, Bleeding Excessive, Pain Increased, Fever Over 101 Degrees F, Vaginal Bleeding Increase, Cramps in Feet or Legs, Vaginal Discharge Foul For Any Problems or Questions: Contact Your Physician Skin/Wound Care Infection Signs and Symptoms: Increased Redness, Foul Odor of Wound, Increased Drainage, Skin Itchy or Has a Rash, Increased Swelling, Temperature Above 101 F Operative Area Clean and Dry: Keep Incision Clean/Dry Stitches/Abigail/Dermabond: Dermabond Bathing Instructions: KISHAN Mancia DO August 20, 2018 19:22
[2018-08-20] MEDS ORDERED: morphine INJ 10 MG/ML 1ML (SYR OR VIAL) IVP ONE (19:30)
[2018-08-20] MEDS ORDERED: ONDANSETRON 4 MG/2 ML (SDV) Z0FRAN IV PRN (19:30)
[2018-08-20] MEDS ORDERED: ONDANSETRON 4 MG/2 ML (SDV) Z0FRAN IVP PRN (19:30)
[2018-08-20] MEDS ORDERED: METOCLOPRAMIDE INJ 10 MG/2 ML (REGLAN) IV PRN (19:30)
[2018-08-20] MEDS ORDERED: NALOXONE 0.4 MG/ML 1 ML (NARCAN) VIAL IV PRN ×2 (19:30)
[2018-08-20] MEDS ORDERED: diphenhydrAMINE 50 MG/ML INJ (BENADRYL) IV PRN (19:30)
--- NOTE | 2018-08-20 19:50 | NUR ---
pt transferred into to PP room per OR staff, report received from Conchis Ojeda RN. Call light with in reach, vss, fresh ice water given, scd's on ashleigh calf. plan of care reviewed with pt and family.
[2018-08-20] MEDS: DOCUSATE SODIUM 100 MG (COLACE) CAP PO SCH (21:10)
[2018-08-20] MEDS: ACETAMINOPHEN 500 MG TAB (TYLENOL) PO SCH (21:10)
[2018-08-21 00:38] VITALS: BP 118/62
[2018-08-21] MEDS: KETOROLAC 30 MG/ML VIAL IV SCH ×2 (00:38→06:39)
[2018-08-21 03:53] VITALS: BP 131/72
[2018-08-21] MEDS: ACETAMINOPHEN 500 MG TAB (TYLENOL) PO SCH ×3 (05:37→20:53)
[2018-08-21 06:06] LABS: BASOPHILS % (AUTO) 0 % (0-10); EOSINOPHILS # (AUTO) 0.2 10^3/uL (0.0-0.3); EOSINOPHILS % (AUTO) 3 % (0-10); HEMATOCRIT 33 % (35-52); HEMOGLOBIN 10.8 G/DL (11.5-16.0); LYMPHOCYTES # (AUTO) 0.7 X 10^3 (1.0-4.0); LYMPHOCYTES % (AUTO) 8 % (12-44); MEAN CORPUSCULAR HEMOGLOBIN 28 PG (25-34); MEAN CORPUSCULAR HGB CONC 33 G/DL (32-36); MEAN CORPUSCULAR VOLUME 85 FL (80-99); MEAN PLATELET VOLUME 9.7 FL (7.4-10.4); MONOCYTES # (AUTO) 0.6 X 10^3 (0.0-1.0); MONOCYTES % (AUTO) 7 % (0-12); NEUTROPHILS # (AUTO) 6.5 X 10^3 (1.8-7.8); NEUTROPHILS % (AUTO) 82 % (42-75); PLATELET COUNT 155 10^3/uL (130-400)
[2018-08-21] MEDS ORDERED: FERROUS SULF 325 MG (IRON) TAB PO SCH (07:00)
--- NOTE | 2018-08-21 07:40 | Postpartum Progress Note ---
Note Note Day # 1 Subjective: Patient is without complaints. Ambulating, voiding. Tolerating a regular diet without nausea or vomiting. Normal lochia. Pain is well controlled with oral pain medications. Objective: Vital Sign - Last 24 Hours 08/20/18 08/20/18 08/20/18 08/20/18 13:30 14:05 19:02 19:10 Temp 97.0 97.0 98.4 Pulse 105 99 Resp 20 20 16 16 B/P (MAP) 152/69 (96) 130/78 (95) Pulse Ox 98 98 O2 Delivery Room Air Room Air 08/20/18 08/20/18 08/20/18 08/20/18 19:20 19:30 19:40 19:50 Temp 98.3 Resp 14 22 23 20 Pulse Ox 96 97 97 97 O2 Delivery Room Air Room Air Room Air Room Air 08/20/18 08/20/18 08/21/18 08/21/18 20:00 21:30 00:38 03:53 Temp 98.1 97.9 97.7 Pulse 75 90 88 Resp 20 20 20 B/P (MAP) 135/62 (86) 118/62 (80) 131/72 (91) Pulse Ox 96 95 98 O2 Delivery Room Air Room Air Room Air Room Air Intake and Output 08/20/18 08/20/18 08/21/18 14:59 22:59 06:59 Intake Total 1250 ml 1800 ml Output Total 100 ml 1900 ml Balance 1150 ml -100 ml Physical Exam: General - Alert and oriented, no apparent distress Abdomen - Soft, appropriately tender to palpation, non-distended, fundus firm at umbilicus Extremities - no edema, negative Mary's bilaterally Incision- c/d/i Assessment: POD 1 RLTCS Labor Acute blood loss anemia Plan: Routine care. Encourage breast feeding. Encourage ambulation. Ferrous sulfate supplementation. Plan for discharge tomorrow Vitals - Labs Vital Signs - I&O Vital Signs Date Time Temp Pulse Resp B/P (MAP) Pulse Ox O2 Delivery O2 Flow Rate FiO2 08/21/18 03:53 97.7 88 20 131/72 (91) 98 Room Air 08/21/18 00:38 97.9 90 20 118/62 (80) 95 Room Air 08/20/18 21:30 Room Air 08/20/18 20:00 98.1 75 20 135/62 (86) 96 Room Air 08/20/18 19:50 98.3 20 97 Room Air 08/20/18 19:40 23 97 Room Air 08/20/18 19:30 22 97 Room Air 08/20/18 19:20 14 96 Room Air 08/20/18 19:10 16 98 Room Air 08/20/18 19:02 98.4 16 98 Room Air 08/20/18 14:05 97.0 99 20 130/78 (95) 08/20/18 13:30 97.0 105 20 152/69 (96) I & O 08/21/18 06:59 Intake Total 3050 ml Output Total 2000 ml Balance 1050 ml Labs Laboratory Tests 08/20/18 13:40: Urine Color YELLOW, Urine Clarity CLEAR, Urine pH 7, Urine Specific [place] 1.005L, Urine Protein NEGATIVE, Urine Glucose (UA) NEGATIVE, Urine Ketones NEGATIVE, Urine Nitrite NEGATIVE, Urine Bilirubin NEGATIVE, Urine Urobilinogen NORMAL, Urine Leukocyte Esterase 1+H, Urine RBC (Auto) NEGATIVE, Urine RBC NONE , Urine WBC RARE, Urine Squamous Epithelial Cells 5-10, Urine Crystals NONE, Urine Bacteria TRACE, Urine Casts NONE, Urine Mucus NEGATIVE, Urine Culture Indicated CULTURE PENDING 08/20/18 14:20: White Blood Count 9.0, Red Blood Count 4.02L, Hemoglobin 11.5, Hematocrit 34L, Mean Corpuscular Volume 85, Mean Corpuscular Hemoglobin 29, Mean Corpuscular Hemoglobin Concent 34, Red Cell Distribution Width 14.2, Platelet Count 180, Mean Platelet Volume 10.0, Neutrophils (%) (Auto) 77H, Lymphocytes (%) (Auto) 10L, Monocytes (%) (Auto) 9, Eosinophils (%) (Auto) 4, Basophils (%) (Auto) 0, Neutrophils # (Auto) 7.0, Lymphocytes # (Auto) 0.9L, Monocytes # (Auto) 0.8, Eosinophils # (Auto) 0.3, Basophils # (Auto) 0.0, Sodium Level 138, Potassium Level 3.5L, Chloride Level 105, Carbon Dioxide Level 21, Anion Gap 12, Blood Urea Nitrogen 7, Creatinine 0.85, Estimat Glomerular Filtration Rate > 60, BUN/ Creatinine Ratio 8, Glucose Level 85, Uric Acid 4.6, Calcium Level 9.0, Corrected Calcium 9.9, Total Bilirubin 0.5, Aspartate Amino Transf (AST/SGOT) 13 , Alanine Aminotransferase (ALT/SGPT) 11, Alkaline Phosphatase 100, Total Protein 5.7L, Albumin 2.9L 08/21/18 05:57: White Blood Count 8.0, Red Blood Count 3.86L, Hemoglobin 10.8L, Hematocrit 33L, Mean Corpuscular Volume 85, Mean Corpuscular Hemoglobin 28, Mean Corpuscular Hemoglobin Concent 33, Red Cell Distribution Width 14.0, Platelet Count 155, Mean Platelet Volume 9.7, Neutrophils (%) (Auto) 82H, Lymphocytes (%) (Auto) 8L , Monocytes (%) (Auto) 7, Eosinophils (%) (Auto) 3, Basophils (%) (Auto) 0, Neutrophils # (Auto) 6.5, Lymphocytes # (Auto) 0.7L, Monocytes # (Auto) 0.6, Eosinophils # (Auto) 0.2, Basophils # (Auto) 0.0 RYANN ROSE DO August 21, 2018 07:40
[2018-08-21 07:50] VITALS: BP 119/60
--- NOTE | 2018-08-21 08:30 | NUR ---
A.M. ASSESSMENT COMPLETED. VSS. DR. ROSE IN TO SEE PT. PLAN TO GIVE LASIX THIS A.M. THEN STOP. PT DOING WELL. FAMILY AT BEDSIDE. INFANT IN ROOM.
--- NOTE | 2018-08-21 08:44 | Anesthesia-Regional Post-Op ---
Regional Patient Condition Mental Status: Alert, Oriented x3 Circulation: Same as Pre-Op Headache: Absent Sensation: Full Recovery Motor Block: Absent Post Op Complications Complications None Follow Up Care/Instructions Patient Instructions None needed. Anesthesia/Patient Condition Patient is doing well, no complaints, stable vital signs, no apparent adverse anesthesia problems. No complications reported per nursing. FLAQUITO ROSEN CRNA August 21, 2018 08:44
[2018-08-21] MEDS: DOCUSATE SODIUM 100 MG (COLACE) CAP PO SCH ×2 (08:53→20:54)
[2018-08-21] MEDS ORDERED: FUROSEMIDE 20 MG (LASIX) TAB PO NR (09:00)
--- NOTE | 2018-08-21 09:04 | NUR ---
OXYIR 5 MG P.O. FOR C/O ABD PAIN.
--- NOTE | 2018-08-21 10:59 | NUR ---
HOLING INFANT IN BED AND RESTING.. ENCOURAGED AMBULATION IN THE [facility] X4 TODAY. STATES UNDERSTANDING. Addendum: 08/21/18 at 1350 by MICHAEL CASTILLO RN HOLDING
[2018-08-21] MEDS ORDERED: IBUPROFEN 600 MG (MOTRIN) TAB PO ONE ×2 (11:35→17:34)
[2018-08-21] MEDS: IBUPROFEN 600 MG (MOTRIN) TAB PO SCH ×2 (12:54→18:17)
[2018-08-21 13:30] VITALS: BP 111/63
--- NOTE | 2018-08-21 13:40 | NUR ---
AMBULATING IN THE HALLWAY. MOVES WELL. PT C/O HAVING A COUGH. INFORMED OF NEED TO AMBULATE, DO I.S., AND SPLINT ABDOMEN WITH COUGH TO CLEAR. AFEBRILE.
--- NOTE | 2018-08-21 14:00 | NUR ---
PULSE ELEVATED WITH AMBULATION. BREATH SOUNDS CTA.
[2018-08-21 14:44] LABS: URINE CREATININE FOR RATIO 21 MG/DL (30-125); URINE PROTEIN FOR RATIO ONLY < 6 MG/DL (6-12)
[2018-08-21] MEDS ORDERED: DEXTROSE 10% IV SOLUTION 250 ML IV ONE (16:09)
[2018-08-21 18:00] VITALS: BP 116/56
--- NOTE | 2018-08-21 18:16 | NUR ---
OXYIR 5 MG P.O. FOR C/O ABD PAIN. CARING FOR IN ROOM. GOOD INTERACTION NOTED. S.O. AT BEDSIDE.
[2018-08-21 20:55] VITALS: BP 136/81
[2018-08-22] MEDS: IBUPROFEN 600 MG (MOTRIN) TAB PO SCH ×3 (00:04→12:34)
[2018-08-22 00:13] VITALS: BP 110/71
[2018-08-22 06:10] VITALS: BP 120/74
[2018-08-22] MEDS: ACETAMINOPHEN 500 MG TAB (TYLENOL) PO SCH ×2 (06:11→14:01)
--- NOTE | 2018-08-22 08:00 | NUR ---
A.M. ASSESSMENT COMPLETED. HAD STORK MEAL FOR BREAKFAST.
--- NOTE | 2018-08-22 08:30 | NUR ---
DR. ROSE IN TO SEE PT.
--- NOTE | 2018-08-22 08:40 | Postpartum Progress Note ---
Note Note Day # 2 Subjective: Patient is without complaints. Ambulating, voiding. Tolerating a regular diet without nausea or vomiting. Normal lochia. Pain is well controlled with oral pain medications. Objective: Physical Exam: General - Alert and oriented, no apparent distress Abdomen - Soft, appropriately tender to palpation, non-distended, fundus firm at umbilicus Extremities - no edema, negative Mary's bilaterally Incision- c/d/i Assessment: POD 2 RLTCS Acute blood loss anemia Plan: Routine care. Encourage breast feeding. Encourage ambulation. Ferrous sulfate supplementation. Plan for discharge today Vitals - Labs Vital Signs - I&O Vital Signs Date Time Temp Pulse Resp B/P (MAP) Pulse Ox O2 Delivery O2 Flow Rate FiO2 08/22/18 06:10 97.9 88 20 120/74 (89) 98 Room Air 08/22/18 00:13 98.4 100 20 110/71 (84) 98 Room Air 08/21/18 20:55 98.0 110 20 136/81 (99) 96 Room Air 08/21/18 18:00 98.7 94 20 116/56 (76) 96 Room Air 08/21/18 13:30 98.8 120 22 111/63 (79) 96 Room Air I & O 08/22/18 07:00 Intake Total 2660 ml Output Total 1600 ml Balance 1060 ml Labs Microbiology 08/20/18 Urine Culture - Final, Complete NO GROWTH RYANN ROSE DO August 22, 2018 08:40
[2018-08-22] MEDS: DOCUSATE SODIUM 100 MG (COLACE) CAP PO SCH (09:33)
--- NOTE | 2018-08-22 11:00 | NUR ---
CARING FOR INFANT IN ROOM. GOOD INTERACTION NOTED. HOPING TO GO HOME TODAY.
[2018-08-22 12:00] VITALS: BP 124/61
--- NOTE | 2018-08-22 13:30 | NUR ---
DISCHARGE INSTRUCTIONS REVIEWED WITH COPY TO PT. RXS GIVEN. STATES UNDERSTANDING OF ALL INSTRUCTIONS AND NEED TO F/U SCHEDULED AND NEEDED.
[2018-08-22 14:25] VITALS: BP 124/61
--- NOTE | 2018-08-22 14:25 | NUR ---
DISMISSED AMB FROM [facility] WITH INFANT TO FAMILY CAR IN STABLE CONDITION ACC BY SPOUSE AND ROSARIO WIGGINS.
== END 2018-08-22 14:25 | disposition home or self-care (01) | DRG 787 ==
LOC: WSo 13:11 → LDRP 13:11 → WSo 16:40 → LDRP 16:40 → WS 20:50
PROVIDERS: ADMIT Obstetrics & Gynecology; ATTEND Obstetrics & Gynecology
PROC: 10D00Z1 Extraction of Products of Conception, Low, Open Approach (ICD-10-PCS; principal; 2018-08-20 17:50)
DX: O60.14X0 Preterm labor third trimester with preterm delivery third trimester, not applicable or unspecified (principal); O90.81 Anemia of the puerperium; D62 Acute posthemorrhagic anemia; O26.833 Pregnancy related renal disease, third trimester; N20.0 Calculus of kidney; O34.211 Maternal care for low transverse scar from previous cesarean delivery; O99.213 Obesity complicating pregnancy, third trimester; E66.01 Morbid (severe) obesity due to excess calories; O12.03 Gestational edema, third trimester; Z3A.36 36 weeks gestation of pregnancy; Z37.0 Single live birth
CPT/HCPCS: 36415; 80053; 81000; 82570; 84156; 84550; 85025; 86850; 86900; 86901; 87088; 94664; 99212

== ENCOUNTER → 2019-10-19 | Outpatient (CLI) | payer BC, MEDICAID ==
[~2019-10-19] MED LIST changes: -ACET-77 PO; +ACET-78 PO; +FERR325T18 PO; +IBUP-844 PO
--- NOTE | 2019-10-19 17:37 | Diagnostic Imaging Report ---
PROCEDURE: US Non-ob pelvis comp/trans. INDICATION: Abnormal bleeding. TECHNIQUE: Multiple real time winston scale sonographic images were obtained of the pelvis transabdominally and endovaginally. CORRELATION STUDY: None. FINDINGS: UTERUS: 9.0 x 5.3 x 5.6 cm. The uterus is retroverted but otherwise appears unremarkable. ENDOMETRIUM: 15 mm. This is considered borderline thickened for a premenopausal patient. RIGHT OVARY: 2.2 x 3.1 x 2.4 cm. The right ovary has an unremarkable appearance. No concerning mass. Blood flow is present. LEFT OVARY: 4.2 x 2.6 x 3.1 cm. Irregular hypoechoic mass in the left ovary favors a probable collapsed cyst, 2.5 x 2.0 x 1.9 cm. Blood flow is present to the ovary. No significant free pelvic fluid. IMPRESSION: 1. Endometrial thickness is at the most upper limits of normal, borderline thickened for a premenopausal patient. Given the provided history, it is recommended that short-term follow-up repeat imaging be obtained, preferably in different phase of the menstrual cycle. 2. Likely collapsing left ovarian cyst at 2.5 cm in size. It can also be followed up at future ultrasound. Dictated by: Dictated on workstation # [id number]
== END ==
LOC: RAD 14:30
PROVIDERS: ATTEND Obstetrics & Gynecology
DX: N93.9 Abnormal uterine and vaginal bleeding, unspecified (principal); R93.89 Abnormal findings on diagnostic imaging of other specified body structures
CPT/HCPCS: 76830; 76856

== ENCOUNTER 2019-12-14 12:13 | Outpatient (CLI) | payer BC ==
[~2019-12-14] VITALS: Ht 175 cm; Wt 160.0 kg
[2019-12-14] MEDS ORDERED: SERT100T PO (14:13)
[2019-12-14] MEDS ORDERED: ALPR0.25 PO (14:13)
[2019-12-14] MEDS ORDERED: FERR-84 PO (14:13)
[2019-12-19] MEDS ORDERED: IBUP-844 PO (10:08)
[2019-12-19] MEDS ORDERED: HYDR-34 PO (10:08)
[2019-12-19] MEDS ORDERED: DCS100C PO (10:08)
[2019-12-19] MEDS ORDERED: SIME80TA16 PO (10:08)
== END 2019-12-14 14:34 | disposition home or self-care (01) ==
LOC: PREOP 12:13
PROVIDERS: ATTEND Obstetrics & Gynecology
DX: Z01.818 Encounter for other preprocedural examination (principal)

== ENCOUNTER 2019-12-26 08:15 | Emergency (ER) | payer BC ==
[~2019-12-26] VITALS: Ht 172.7 cm; Wt 154.2 kg
[~2019-12-26 08:15] MED LIST changes: +ALPR0.25 PO; +DCS100C PO; +FERR-84 PO; +HYDR-34 PO; +SERT100T PO; +SIME80TA16 PO
[2019-12-26] MEDS ORDERED: NS IV 1000 ML 1,000 ML IV SCH (08:26)
[2019-12-26] MEDS ORDERED: ASPIRIN 81 MG CHEW (CHILDREN'S ASA) PO ONE (08:30)
[2019-12-26] MEDS ORDERED: fentaNYL INJECTION 100 MCG/2 ML AMP IVP ONE (08:30)
--- NOTE | 2019-12-26 08:35 | ED Chest Pain ---
General Stated Complaint: CHEST PAIN Source: patient Exam Limitations: no limitations History of Present Illness Date Seen by Provider: Dec 26, 2019 Time Seen by Provider: 08:16 Initial Comments Patient presents to ER by private conveyance from home with chief complaint of pain that started on her left side of her chest under her left breast worse with inspiration. She had a laparoscopic hysterectomy by Dr. ROSE last week. She has no personal history of heart or lung disease. No history of clots in herself or her family. No swelling in either leg. She has shortness of breath and has had an occasional dry nonproductive cough since being intubated for her procedure. No fevers chills nausea or vomiting. No known sick contacts. No hist ory of acid reflux. She does take Zoloft for anxiety. She rates the pain as a 10 out of 10. She did take a hydrocodone left over from her hysterectomy this morning and it did not help her pain at all. No history of pancreatitis. She only rarely ever drinks alcohol. No history of peptic ulcer disease or gastritis. No sore throat. Allergies and Home Medications Allergies Coded Allergies: No Known Drug Allergies (Unverified , 12/14/19) Home Medications Alprazolam 0.25 Mg Tablet, 0.25 MG PO PRN, (Reported) Docusate Sodium 100 Mg Capsule, 100 MG PO BID PRN for CONSTIPATION-1ST LINE Prescribed by: RYANN ROSE on 12/19/19 1008 Ferrous Sulfate 325 Mg Tablet, 650 MG PO DAILY, (Reported) Hydrocodone Bit/Acetaminophen 1 Ea Tablet, 2 EA PO Q6H PRN for Pain-See Instructions Prescribed by: RYANN ROSE on 12/19/19 1008 Ibuprofen 600 Mg Tablet, 600 MG PO Q6H Prescribed by: RYANN ROSE on 12/19/19 1008 Ondansetron 4 Mg Tab.rapdis, 4 MG PO Q6H PRN for NAUSEA/VOMITING Prescribed by: DINORA LA on 12/26/19 1028 Oxycodone HCl/Acetaminophen 1 Each Tablet, 1 TAB PO Q6H PRN for PAIN- BREAKTHROUGH Prescribed by: DINORA LA on 12/26/19 1028 Prednisone 20 Mg Tab, 40 MG PO DAILY Prescribed by: DINORA LA on 12/26/19 1028 Sertraline HCl 100 Mg Tablet, 200 MG PO HS, (Reported) Simethicone 80 Mg Tab.chew, 40 MG PO TID PRN for INDIGESTION 2ND LINE Prescribed by: RYANN ROSE on 12/19/19 1008 Patient Home Medication List Home Medication List Reviewed: Yes Review of Systems Review of Systems Constitutional: No chills, No diaphoresis, No fever, No malaise EENTM: No Blurred Vision, No Double Vision Respiratory: Cough; Denies Orthopnea; Shortness of Air, SOA With Exertion Cardiovascular: Chest Pain; Denies Edema, Denies Irregular Heart Rate, Denies Palpitations, Denies Syncope Gastrointestinal: Denies Abdomen Distended, Denies Abdominal Pain, Denies Constipated, Denies Diarrhea, Denies Nausea Genitourinary: Denies Burning, Denies Discharge Musculoskeletal: No back pain, No joint pain All Other Systems Reviewed Negative Unless Noted: Yes Past Wcdfjhc-Swmebu-Kmcoht Hx Patient Social History Alcohol Use: Rarely Uses Recreational Drug Use: No Smoking Status: Never a Smoker 2nd Hand Smoke Exposure: No Recent Foreign Travel: No Contact w/Someone Who Travel: No Recent Hopitalizations: Yes Immunizations Up To Date Tetanus Booster (TDap): Less than 5yrs PED Vaccines UTD: Yes Date of Influenza Vaccine: Jan 24, 2019 Seasonal Allergies Seasonal Allergies: No Past Medical History Surgeries: Yes (CS X2) Section Respiratory: No Currently Using CPAP: No Currently Using BIPAP: No Cardiac: Yes (HX MITRAL VALVE PROLAPSE CHILD) Neurological: No Female Reproductive Disorders: Menstrual Problems Sexually Transmitted Disease: No HIV/AIDS: No Genitourinary: Yes Kidney Stones Gastrointestinal: No Musculoskeletal: No Endocrine: No HEENT: No Loss of Vision: Denies Hearing Impairment: Denies Cancer: No Psychosocial: Yes Anxiety Integumentary: No Blood Disorders: Yes (ANEMIA) Adverse Reaction/Blood Tranf: No (N/A) Family Medical History Alzheimer's disease MATERNAL GRANDMOTHER Arthritis MATERNAL GRANDMOTHER Asthma MATERNAL GRANDMOTHER FH: COPD (chronic obstructive pulmonary disease) MATERNAL GRANDMOTHER FH: emphysema MATERNAL GRANDMOTHER Hypercholesterolemia 19 FATHER Respiratory disorder 19 FATHER (EMPHYSEMA COPD) Other Conditions/Hx Physical Exam Vital Signs Vital Signs - First Documented Capillary Refill : Height, Weight, BMI Height: 5'9.00" Weight: 369lbs. 0.8oz. 167.375722mf; 52.24 BMI Method: General Appearance: Anxious, Moderate Distress, Obese HEENT: PERRL/EOMI, Pharynx Normal, Moist Mucous Membranes Neck: Full Range of Motion, Normal Inspection Respiratory: Chest Non Tender, Lungs Clear, Normal Breath Sounds, No Accessory Muscle Use, Respiratory Distress (mild with respiratory rate of 26-28) Cardiovascular: Regular Rate, Rhythm, No Edema, Normal Peripheral Pulses Gastrointestinal: Normal Bowel Sounds, Non Tender, Soft Extremity: Normal Capillary Refill, Normal Inspection, Normal Range of Motion, No Pedal Edema Neurologic/Psychiatric: Alert, Oriented x3, No Motor/Sensory Deficits, Normal Mood/Affect Skin: Normal Color, Warm/Dry Progress/Results/Core Measures Results/Orders Lab Results Laboratory Tests Test 12/26/19 08:25 Range/Units White Blood Count 7.3 4.3-11.0 10^3/uL Red Blood Count 4.76 4.35-5.85 10^6/uL Hemoglobin 10.4 L 11.5-16.0 G/DL Hematocrit 34 L 35-52 % Mean Corpuscular Volume 71 L 80-99 FL Mean Corpuscular Hemoglobin 22 L 25-34 PG Mean Corpuscular Hemoglobin Concent 31 L 32-36 G/DL Red Cell Distribution Width 16.4 H 10.0-14.5 % Platelet Count 263 130-400 10^3/uL Mean Platelet Volume 9.3 7.4-10.4 FL Neutrophils (%) (Auto) 66 42-75 % Lymphocytes (%) (Auto) 22 12-44 % Monocytes (%) (Auto) 8 0-12 % Eosinophils (%) (Auto) 3 0-10 % Basophils (%) (Auto) 0 0-10 % Neutrophils # (Auto) 4.8 1.8-7.8 X 10^3 Lymphocytes # (Auto) 1.6 1.0-4.0 X 10^3 Monocytes # (Auto) 0.6 0.0-1.0 X 10^3 Eosinophils # (Auto) 0.2 0.0-0.3 10^3/uL Basophils # (Auto) 0.0 0.0-0.1 10^3/uL Prothrombin Time 13.2 12.2-14.7 SEC INR Comment 1.0 0.8-1.4 Activated Partial Thromboplast Time 30 24-35 SEC Sodium Level 140 135-145 MMOL/L Potassium Level 4.0 3.6-5.0 MMOL/L Chloride Level 107 98-107 MMOL/L Carbon Dioxide Level 24 21-32 MMOL/L Anion Gap 9 5-14 MMOL/L Blood Urea Nitrogen 14 7-18 MG/DL Creatinine 0.69 0.60-1.30 MG/DL Estimat Glomerular Filtration Rate > 60 BUN/Creatinine Ratio 20 Glucose Level 89 70-105 MG/DL Calcium Level 8.8 8.5-10.1 MG/DL Corrected Calcium 9.0 8.5-10.1 MG/DL Magnesium Level 1.7 1.6-2.4 MG/DL Total Bilirubin 0.2 0.1-1.0 MG/DL Aspartate Amino Transf (AST/SGOT) 15 5-34 U/L Alanine Aminotransferase (ALT/SGPT) 17 0-55 U/L Alkaline Phosphatase 74 40-136 U/L Myoglobin 24.2 10.0-92.0 NG/ML Troponin I < 0.028 <0.028 NG/ML B-Type Natriuretic Peptide < 10.0 <100.0 PG/ML Total Protein 6.7 6.4-8.2 GM/DL Albumin 3.8 3.2-4.5 GM/DL Lipase 20 8-78 U/L My Orders Orders - BESSIE,DINORA J Ekg Tracing (12/26/19:18) Continuous Ekg Monitoring (12/26/19:18) Cbc With Automated Diff (12/26/19:) Magnesium (12/26/19 08:) Chest 1 View, Ap/Pa Only (12/26/19:) Comprehensive Metabolic Panel (12/26/19:) Myoglobin Serum (12/26/19:) Protime With Inr (12/26/19:) Partial Thromboplastin Time (12/26/19:) O2 (12/26/19:) Ed Iv/Invasive Line Start (12/26/19:) Lipase (12/26/19:) BNP (12/26/19:) Aspirin Chewable Tablet (Baby Aspirin Ch (12/26/19 08:30) Fentanyl Injection (Sublimaze Injection (12/26/19 08:30) Ed Iv/Invasive Line Start (12/26/19 08:26) Ns Iv 1000 Ml (Sodium Chloride 0.9%) (12/26/19 08:26) Troponin I (12/26/19 08:25) Ct Angio Chest W (12/26/19 09:00) Iohexol Injection (Omnipaque 350 Mg/Ml 1 (12/26/19 09:30) Received Contrast (Hold Metformin- Contr (12/26/19 09:30) Ns (Ivpb) (Sodium Chloride 0.9% Ivpb Bag (12/26/19 09:30) Medications Given in ED Current Medications Medications Dose Ordered Sig/Ledy Route Start Time Stop Time Status Last Admin Dose Admin Aspirin 324 mg ONCE ONCE PO 12/26/19 08:30 12/26/19 08:31 DC 12/26/19 08:32 324 MG Fentanyl Citrate 50 mcg ONCE ONCE IVP 12/26/19 08:30 12/26/19 08:31 DC 12/26/19 08:32 50 MCG Vital Signs/I&O 12/26/19 12/26/19 12/26/19 08:18 08:18 10:38 Temp 37.1 Pulse 98 74 Resp 15 10 B/P (MAP) 168/111 (130) 130/92 Pulse Ox 98 97 O2 Delivery Room Air Room Air Room Air Progress Progress Note #1: Time: 08:37 Progress Note Aspirin, EKG, labs included troponin. Plan to get a CT angiogram to rule out pulmonary embolism after recent surgical procedure. Patient's not on oral contraceptives nor does she smoke or have a family history of PE. She's not requiring any oxygen and but she does have increased respiratory rate. Progress Note #2: Time: 10:25 Progress Note Patient is feeling significantly better. The hydrocodone did not help much so we'll put her on Percocet instead. I suspect she has pleurisy. We'll give her a dose of Toradol before she leaves. We have given return precautions and counseling. Initial ECG Impression Date: Dec 26, 2019 Initial ECG Impression Time: 08:20 Initial ECG Rate: 91 Initial ECG Rhythm: Normal Sinus Initial ECG Intervals: Normal Initial ECG Impression: Normal Comment Normal sinus rhythm without clinically relevant ST elevation or depression. Diagnostic Imaging Diagonstic Imaging: CT (angio) Plain Films/CT/US/NM/MRI: chest Comments [facility] [place], [place] NAME: GREER KNIGHT [facility] REC#: [id number] PT STATUS: REG ER : 1990 PHYSICIAN: DINORA LA MD ADMIT DATE: 12/26/19/ER Draft Date of Exam:12/26/19 CT ANGIO CHEST W PROCEDURE: CT angiography of the chest with contrast. TECHNIQUE: Multiple contiguous axial images were obtained through the chest after uneventful bolus administration of intravenous contrast. 3D reconstructed CTA MIP acquisitions were also performed. Auto Exposure Controls were utilized during the CT exam to meet ALARA standards for radiation dose reduction. INDICATION: Chest pain, history of hysterectomy last Thursday. EXAMINATION: CTA of the chest with contrast from 12/26/2019 FINDINGS: The lungs demonstrate a few scattered airspace opacities at the bases likely atelectasis. There are no effusions. No pneumothorax. Within the mediastinum there is no hilar or mediastinal adenopathy. The pulmonary arteries are not well opacified. No central pulmonary embolus is appreciated. The peripheral vessels are poorly evaluated and if there is continued clinical concern follow-up within 24 hours would be recommended. The heart is unremarkable. Visualized upper abdomen demonstrates hepatosplenomegaly with fatty infiltration in the liver. There is no acute osseous abnormality. IMPRESSION: 1. No central pulmonary emboli with the peripheral vessels not well opacified see above discussion. 2. Bibasilar dependent atelectasis. 3. Hepatosplenomegaly of uncertain etiology. Dictated on workstation # [id number] Dict: 12/26/19 0942 Trans: 12/26/19 0952 [facility] [id number] Interpreted by: DESIREE DAMON MD Electronically signed by: Reviewed: Reviewed by Az Diagonstic Imaging: Xray Plain Films/CT/US/NM/MRI: chest Comments [facility] [place] NAME: GREER KNIGHT [facility] REC#: [id number] PT STATUS: REG ER : 1990 PHYSICIAN: DINORA LA MD ADMIT DATE: 12/26/19/ER Draft Date of Exam:12/26/19 CHEST 1 VIEW, AP/PA ONLY INDICATION: Chest pain. No prior examinations are available for comparison. FINDINGS: Heart size is normal. There is patchy right basal infiltrate. There is no pleural effusion or pneumothorax. The mediastinum is unremarkable. IMPRESSION: Patchy right basal infiltrate. Dictated on workstation # [id number] Dict: 12/26/19 0850 Trans: 12/26/19 0852 [facility] [id number] Interpreted by: ALIYA WHARTON MD Electronically signed by: Reviewed: Reviewed by Me Departure Impression Primary Impression: Pleuritic chest pain Disposition: HOME, SELF-CARE Condition: Stable Departure-Patient Inst. Decision time for Depature: 10:25 Referrals: NO,LOCAL PHYSICIAN (PCP/Family) Primary Care Physician Patient Instructions: Pleuritic Chest Pain (DC) Add. Discharge Instructions: Plan to follow up in the next week with a physician. You may always return to the nearest ER should your symptoms worsen or you have new, worrisome symptoms. Start taking Aleve 2 tablets twice a day on a scheduled basis for the next 1-2 weeks. Expect to be in pain although getting better over a few days over the next 1-2 weeks. Tylenol 1-2 tablets every 6 hours as necessary for pain. Percocet 1 tablet every 6 hours as necessary for breakthrough pain keeping you from being functional. Continue taking something for your bowels such as MiraLAX or Colace to stay regular. Prednisone 2 tablets daily for the next 5 days to reduce the inflammation and pain. Ondansetron one tablet every 6 hours under the tongue as necessary for nausea or vomiting. Scripts Prednisone (Prednisone) 20 Mg Tab 40 MG PO DAILY for 5 Days, #10 TAB 0 Refills Prov: DINORA LA 12/26/19 Ondansetron (Ondansetron Odt) 4 Mg Tab.rapdis 4 MG PO Q6H PRN for NAUSEA/VOMITING, #8 TAB 0 Refills Prov: DINORA LA 12/26/19 Oxycodone HCl/Acetaminophen (Percocet 5-325 mg Tablet) 1 Each Tablet 1 TAB PO Q6H PRN for PAIN-BREAKTHROUGH MDD 6 TABS for 7 Days, #14 TAB 0 Refills Prov: DINORA LA 12/26/19 DINORA LA Dec 26, 2019 08:35
[2019-12-26 08:46] LABS: BASOPHILS % (AUTO) 0 % (0-10); EOSINOPHILS # (AUTO) 0.2 10^3/uL (0.0-0.3); EOSINOPHILS % (AUTO) 3 % (0-10); HEMATOCRIT 34 % (35-52); HEMOGLOBIN 10.4 G/DL (11.5-16.0); LYMPHOCYTES # (AUTO) 1.6 X 10^3 (1.0-4.0); LYMPHOCYTES % (AUTO) 22 % (12-44); MEAN CORPUSCULAR HEMOGLOBIN 22 PG (25-34); MEAN CORPUSCULAR HGB CONC 31 G/DL (32-36); MEAN CORPUSCULAR VOLUME 71 FL (80-99); MEAN PLATELET VOLUME 9.3 FL (7.4-10.4); MONOCYTES # (AUTO) 0.6 X 10^3 (0.0-1.0); MONOCYTES % (AUTO) 8 % (0-12); NEUTROPHILS # (AUTO) 4.8 X 10^3 (1.8-7.8); NEUTROPHILS % (AUTO) 66 % (42-75); PLATELET COUNT 263 10^3/uL (130-400); WHITE BLOOD COUNT 7.3 10^3/uL (4.3-11.0)
--- NOTE | 2019-12-26 08:53 | Diagnostic Imaging Report ---
INDICATION: Chest pain. No prior examinations are available for comparison. FINDINGS: Heart size is normal. There is patchy right basal infiltrate. There is no pleural effusion or pneumothorax. The mediastinum is unremarkable. IMPRESSION: Patchy right basal infiltrate. Dictated by: Dictated on workstation # [id number]
[2019-12-26 09:01] LABS: PROTHROMBIN TIME PATIENT 13.2 SEC (12.2-14.7)
[2019-12-26 09:02] LABS: ALBUMIN 3.8 GM/DL (3.2-4.5)
[2019-12-26 09:03] LABS: CHLORIDE 107 MMOL/L (98-107); SODIUM 140 MMOL/L (135-145)
[2019-12-26 09:04] LABS: CALCIUM 8.8 MG/DL (8.5-10.1)
[2019-12-26 09:05] LABS: GLUCOSE 89 MG/DL (70-105); TOTAL PROTEIN 6.7 GM/DL (6.4-8.2)
[2019-12-26 09:06] LABS: CARBON DIOXIDE 24 MMOL/L (21-32)
[2019-12-26 09:07] LABS: BILIRUBIN,TOTAL 0.2 MG/DL (0.1-1.0)
[2019-12-26 09:08] LABS: ALKALINE PHOSPHATASE 74 U/L (40-136)
[2019-12-26 09:09] LABS: CREATININE SERUM 0.69 MG/DL (0.60-1.30); GFR ESTIMATED > 60
[2019-12-26 09:10] LABS: BUN/CREATININE RATIO 20
[2019-12-26 09:11] LABS: MAGNESIUM 1.7 MG/DL (1.6-2.4)
[2019-12-26 09:12] LABS: ALANINE AMINOTRANSFERASE 17 U/L (0-55); LIPASE 20 U/L (8-78)
[2019-12-26] MEDS ORDERED: NS 100 ML (IVPB) BAG IV ONE (09:30)
[2019-12-26] MEDS ORDERED: IOHEXOL 350 MG/ML 100 ML (OMNIPAQUE 350) VIAL IV ONE (09:30)
[2019-12-26] MEDS ORDERED: HOLD METFORMIN - RECEIVED CONTRAST 20 ML VIAL IV SCH (09:30)
--- NOTE | 2019-12-26 09:53 | Diagnostic Imaging Report ---
PROCEDURE: CT angiography of the chest with contrast. TECHNIQUE: Multiple contiguous axial images were obtained through the chest after uneventful bolus administration of intravenous contrast. 3D reconstructed CTA MIP acquisitions were also performed. Auto Exposure Controls were utilized during the CT exam to meet ALARA standards for radiation dose reduction. INDICATION: Chest pain, history of hysterectomy last Thursday. EXAMINATION: CTA of the chest with contrast from 12/26/2019 FINDINGS: The lungs demonstrate a few scattered airspace opacities at the bases likely atelectasis. There are no effusions. No pneumothorax. Within the mediastinum there is no hilar or mediastinal adenopathy. The pulmonary arteries are not well opacified. No central pulmonary embolus is appreciated. The peripheral vessels are poorly evaluated and if there is continued clinical concern follow-up within 24 hours would be recommended. The heart is unremarkable. Visualized upper abdomen demonstrates hepatosplenomegaly with fatty infiltration in the liver. There is no acute osseous abnormality. IMPRESSION: 1. No central pulmonary emboli with the peripheral vessels not well opacified see above discussion. 2. Bibasilar dependent atelectasis. 3. Hepatosplenomegaly of uncertain etiology. Dictated by: Dictated on workstation # [id number]
[2019-12-26] MEDS ORDERED: PRD20T PO (10:28)
[2019-12-26] MEDS ORDERED: ONDA4TAB11 PO (10:28)
[2019-12-26] MEDS ORDERED: OXYC1TAB87 PO (10:28)
[2019-12-26 10:38] VITALS: BP 130/92
== END 2019-12-26 10:38 | disposition home or self-care (01) ==
LOC: EDUNIT# 08:15 → ER 08:16
DX: R07.81 Pleurodynia (principal); E66.9 Obesity, unspecified; Z68.43 Body mass index [BMI] 50.0-59.9, adult; Z79.52 Long term (current) use of systemic steroids
CPT/HCPCS: 36415; 71045; 71275; 80053; 83690; 83735; 83874; 83880; 84484; 85025; 85610; 85730; 93005

== ENCOUNTER 2023-03-13 09:07 | Emergency (ER) | payer OTHER ==
[~2023-03-13] VITALS: Ht 175.3 cm; Wt 113.4 kg
[~2023-03-13 09:07] MED LIST changes: -DCS100C PO; +DOCU-239 PO; +ONDA4TAB11 PO; +OXYC1TAB87 PO; +PRD20T PO
[2023-03-13 09:43] VITALS: BP 120/82
--- NOTE | 2023-03-13 10:02 | ED Lower Extremity ---
General Chief Complaint: Lower Extremity Stated Complaint: LT KNEE INJ | FALL Nursing Triage Note: PT TO FT1 BY WC WITH COMPLAINT OF LEFT KNEE PAIN. STATES WAS CLIMBING DOWN TRAMPOLINE LADDER YESTERDAY, FELL, AND TWISTED KNEE. STATES WENT TO [facility] [facility] LAST NIGHT AND WAS TOLD NOTHING WAS BROKE. STATES SHE IS UNABLE TO GET AROUND AT HOME. Source: patient Exam Limitations: no limitations History of Present Illness Date Seen by Provider: Mar 13, 2023 Time Seen by Provider: 10:02 Initial Comments Patient is a 33-year-old female who presents to the emergency room with a chief complaint of left knee pain. Patient was getting down off of a trampoline last night and got her foot caught in the step, fell and twisted her leg and the ladder to the trampoline. She had immediate pain. Went to [place], had x-rays last night. She states they told her nothing was broken. She has increased pain today and inability to bear weight. Denies numbness, tingling. No other complaints of injury. No prior history of injury or surgery to this knee. States that when the clinician performed Rosenda's test (what she describes) it was positive Onset: yesterday Severity: severe Pain/Injury Location: left leg Method of Injury: fell, twisted Modifying Factors: Improves With Immobilization; Worse With Jarring, Worse With Movement; Improves With Rest Allergies and Home Medications Allergies Coded Allergies: No Known Drug Allergies (Unverified , 12/14/19) Patient Home Medication List Home Medication List Reviewed: Yes Alprazolam (Xanax) 0.25 Mg Tablet, 0.25 MG PO PRN, (Reported) Entered as Reported by: FERNIE LOPEZ on 12/14/19 1413 Docusate Sodium (Dok) 100 Mg Capsule, 100 MG PO BID PRN for CONSTIPATION-1ST LINE Prescribed by: RYANN ROSE on 12/19/19 1008 Ferrous Sulfate (Iron) 325 Mg Tablet, 650 MG PO DAILY, (Reported) Entered as Reported by: FERNIE LOPEZ on 12/14/19 1413 Hydrocodone Bit/Acetaminophen (HYDROcodone/APAP 7.5/325 TAB) 1 Ea Tablet, 2 EA PO Q6H PRN for Pain-See Instructions Prescribed by: RYANN ROSE on 12/19/19 1008 Ibuprofen (Ibu) 600 Mg Tablet, 600 MG PO Q6H Prescribed by: RYANN ROSE on 12/19/19 1008 Ondansetron (Ondansetron Odt) 4 Mg Tab.rapdis, 4 MG PO Q6H PRN for NAUSE A/VOMITING Prescribed by: DINORA LA on 12/26/19 1028 Oxycodone HCl/Acetaminophen (Percocet 5-325 mg Tablet) 1 Each Tablet, 1 TAB PO Q6H PRN for PAIN-BREAKTHROUGH Prescribed by: DINORA LA on 12/26/19 1028 Prednisone (Prednisone) 20 Mg Tab, 40 MG PO DAILY Prescribed by: DINORA LA on 12/26/19 1028 Prednisone (Prednisone) 50 Mg Tab, 50 MG PO DAILY Prescribed by: SERGIO LORENZ on 03/13/23 1020 Sertraline HCl (Zoloft) 100 Mg Tablet, 200 MG PO HS, (Reported) Entered as Reported by: FERNIE LOPEZ on 12/14/19 1413 Simethicone (Simethicone) 80 Mg Tab.chew, 40 MG PO TID PRN for INDIGESTION 2ND LINE Prescribed by: RYANN ROSE on 12/19/19 1008 Review of Systems Constitutional: see HPI Musculoskeletal: joint pain (left knee) Skin: no symptoms reported Psychiatric/Neurological: Anxiety Past Abwyuxg-Mihpak-Whxoyg Hx Patient Social History Tobacco Use?: No Use of E-Cig and/or Vaping dev: No Substance use?: No Alcohol Use?: No Pt feels they are or have been: No Immunizations Up To Date Tetanus Booster (TDap): Less than 5yrs PED Vaccines UTD: Yes Seasonal Allergies Seasonal Allergies: No Past Medical History Surgeries: Yes (CS X2) Section, Hysterectomy Respiratory: No Currently Using CPAP: No Currently Using BIPAP: No Cardiac: Yes (HX MITRAL VALVE PROLAPSE CHILD) Neurological: No Female Reproductive Disorders: Menstrual Problems 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 Sexually Transmitted Disease: No HIV/AIDS: No Genitourinary: Yes Kidney Stones Gastrointestinal: No Musculoskeletal: No Endocrine: No HEENT: No Loss of Vision: Denies Hearing Impairment: Denies Cancer: No Psychosocial: Yes Anxiety Integumentary: No Blood Disorders: Yes (ANEMIA) Adverse Reaction/Blood Tranf: No (N/A) Family Medical History Alzheimer's disease MATERNAL GRANDMOTHER Arthritis MATERNAL GRANDMOTHER Asthma MATERNAL GRANDMOTHER FH: COPD (chronic obstructive pulmonary disease) MATERNAL GRANDMOTHER FH: emphysema MATERNAL GRANDMOTHER Hypercholesterolemia 19 FATHER Respiratory disorder 19 FATHER (EMPHYSEMA COPD) Other Conditions/Hx Physical Exam Vital Signs Vital Signs - First Documented 03/13/23 09:43 Pulse 93 Resp 16 B/P (MAP) 120/82 (95) Pulse Ox 96 O2 Delivery Room Air Capillary Refill : Less Than 3 Seconds Height, Weight, BMI Height: 5'9.00" Weight: 369lbs. 0.8oz. 167.889248db; 36.00 BMI Method: General Appearance: WD/WN, mild distress (tearful), obese HEENT: PERRL/EOMI Cardiovascular: regular rate, rhythm Respiratory: no respiratory distress, no accessory muscle use Hips: left hip non-tender, left hip normal range of motion Legs: bilateral leg non-tender, bilateral leg normal inspection, bilateral leg normal range of motion Knees: left knee bone tenderness, left knee joint effusion, left knee pain, left knee soft tissue tenderness (lateral joint line), left knee swelling, left knee other (tenderness to palpation over the patella tendon; it is intact; ) Ankles: bilateral ankle non-tender, bilateral ankle normal inspection, bilateral ankle normal range of motion, bilateral ankle no evidence of injury Feet: bilateral foot non-tender, bilateral foot normal inspection, bilateral foot normal range of motion, bilateral foot no evidence of injury Neurologic/Tendon: normal sensation Neurologic/Psychiatric: alert, oriented x 3, other (tearful and anxious) Skin: normal color, warm/dry Progress/Results/Core Measures Results/Orders Vital Signs/I&O 03/13/23 09:43 Pulse 93 Resp 16 B/P (MAP) 120/82 (95) Pulse Ox 96 O2 Delivery Room Air Blood Pressure Mean: 95 Progress Progress Note : Time: 10:13 Progress Note Patient seen and evaluated by me, evaluation today includes history and physical exam. Exam is pertinent for well-developed well-nourished obese female in moderate distress due to left knee pain. Left knee is swollen with effusion. Tender to palpation over the patellar tendon and lateral joint line. Patient had examination last night at [facility] which indicates possible meniscal tear. The joint was not stressed on my exam today. Patient reports negative x- rays at the hospital last night. She has distal pulses and sensation. Ankle is nontender, nonswollen. Full range of motion of the left hip without tenderness to palpation. No calf tenderness or swelling. Differential diagnosis ligamentous injury versus meniscal tear Patient is recommended to wear a knee immobilizer, crutches with toe-touch weightbearing as tolerated. NSAIDs, ice packs and elevation. She is encouraged to follow-up with an orthopedic surgeon as she likely needs an MRI to further evaluate the injury. She is comfortable with the plan of care. All questions are sought and answered. Departure Impression Primary Impression: Other internal derangements of left knee Disposition: HOME, SELF-CARE Condition: Stable Departure-Patient Inst. Decision time for Depature: 10:14 Referrals: LIZ CEVALLOS DO (PCP/Family) Primary Care Physician FLAQUITO DE OLIVEIRA MD, MICHAEL P MD Patient Instructions: Internal Derangement of the Knee Add. Discharge Instructions: Where an immobilizing wrap to the left knee. Use crutches with toe-touch weightbearing as tolerated. Prednisone 50mg once a day for 5 days. Use the pain medications as prescribed last night; then you can start the prednisone and add Ibuprofen 3 tablets which is 600 mg every 6 hours with food as needed for pain. Take an over the counter acid christmas tree grower such as generic Prilosec or Pepcid while taking Prednisone/ Ibuprofen. Elevate the leg to help decrease swelling. Ice packs for swelling as well. Please call one of our orthopedic doctors, Dr. De Oliveira or Dr. Doshi for a follow- up appointment for further evaluation of your knee. Return to the emergency department for any new, concerning or emergent complaints. Scripts Prednisone (Prednisone) 50 Mg Tab 50 MG PO DAILY for 5 Days, #5 TAB Prov: SERGIO LORENZ MD 03/13/23 SERGIO LORENZ MD Mar 13, 2023 10:02
[2023-03-13] MEDS ORDERED: PRD50T PO (10:20)
== END 2023-03-13 10:52 | disposition home or self-care (01) ==
LOC: EDUNIT# 09:07 → ER 09:10
DX: M23.92 Unspecified internal derangement of left knee (principal); X50.1XXA Overexertion from prolonged static or awkward postures, initial encounter; Y93.44 Activity, trampolining
CPT/HCPCS: 99283; L1830

== ENCOUNTER → 2023-03-18 | Outpatient (CLI) | payer OTHER ==
[~2023-03-18] MED LIST changes: +PRD50T PO
== END ==
LOC: ORTHO 09:09
PROVIDERS: ATTEND Orthopaedic Surgery
DX: S83.242D Other tear of medial meniscus, current injury, left knee, subsequent encounter (principal); X58.XXXD Exposure to other specified factors, subsequent encounter

== ENCOUNTER → 2023-03-30 | Outpatient (CLI) | payer OTHER ==
--- NOTE | 2023-03-30 12:47 | Diagnostic Imaging Report ---
EXAMINATION: Magnetic resonance imaging of the left knee without intravenous contrast DATE: March 30, 2023. COMPARISON: None. INDICATION: 33-year-old female, fall in February 2023. Left knee pain. TECHNIQUE: Multiplanar, multisequence non contrast enhanced MR imaging was accomplished. FINDINGS: MENISCI: The medial meniscus is intact. The lateral meniscus is intact. LIGAMENTS AND TENDONS: The anterior cruciate ligament is not well seen and most likely is completely or near completely torn. The posterior cruciate ligament is intact. The medial collateral ligament is intact. The iliotibial band, mid third lateral capsular ligament, fibular collateral ligament, biceps femoris tendon and conjoined tendon are intact. The quadriceps tendon and patella ligament are intact. JOINT: The articular cartilage surfaces are intact. There is a small to moderate knee joint effusion. There is no identified intra-articular body or prominent synovitis. BONE: There is a nondisplaced fracture involving the posterior aspect of the lateral tibial plateau predominantly subchondral in location with adjacent marrow edema. There is no offset of the articulating surface. There is a bone contusion of the posterior aspect of medial tibial plateau and of the lateral femoral condyle underlying the lateral femoral notch. BURSAE AND SOFT TISSUES: There is no Lizarraga's cyst. There is low-level edema in the soleus muscle. IMPRESSION: 1. Complete or near-complete tear of the anterior cruciate ligament. Intact posterior cruciate ligament. Additional ligaments and tendons are intact. 2. No identified meniscal tear. 3. Nondisplaced predominantly subchondral fracture of the posterior aspect of the lateral tibial plateau. Bone contusions of the posterior aspects of the medial tibial plateau into the lateral femoral condyle underlying the lateral femoral notch. 4. No identified cartilage defect. Small to moderate size knee joint effusion. 5. Low level edema in the soleus muscle most likely reflecting a low-grade muscle strain. Report faxed to Dr. Kelly at 12:47 PM 03/30/2023/cb Dictated by: Dictated on workstation # [id number]
== END ==
LOC: RAD 10:30
PROVIDERS: ATTEND Orthopaedic Surgery
DX: S83.512A Sprain of anterior cruciate ligament of left knee, initial encounter (principal); S82.145A Nondisplaced bicondylar fracture of left tibia, initial encounter for closed fracture; S80.12XA Contusion of left lower leg, initial encounter; X58.XXXA Exposure to other specified factors, initial encounter
CPT/HCPCS: 73721